=== PATIENT | male | born 1945 | race Caucasian/White ===

== ENCOUNTER 2021-04-28 12:52 | Emergency (ER) | payer MEDICARE, SELFPAY ==
[2021-04-28] VITALS (9 sets, daily range): BP systolic 108–136; BP diastolic 60–91; PULSE 68–78; RESP 14–26; TEMP 36.6; O2SAT 86–98; BMI 24.4
--- NOTE | 2021-04-28 13:20 | ECG_ITS ---
[facility] Test Date: 2021-04-28 Pat Name: Sree Robertson Department: Room: Gender: Male Control Room Agent: : 1945 Requested By: Orville Meraz Order Number: [id number] Loco MD: Iman Hayden M.D. Measurements Intervals [place] Rate: 73 P: 52 GA: 152 QRS: 26 QRSD: 96 T: 36 QT: 384 QTc: 425 Interpretive Statements SINUS RHYTHM WITH FREQUENT SUPRAVENTRICULAR PREMATURE COMPLEXES ABNORMAL RHYTHM ECG No previous ECG available for comparison Electronically Signed On 04-28-2021 16:10:40 CDT by Iman Hayden M.D. [id number]
--- NOTE | 2021-04-28 13:20 | XRR_ITS ---
PROCEDURE INFORMATION: Exam: XR Chest Exam date and time: 04/28/2021 1:20 PM Age: 76 years old Clinical indication: Cough, dyspnea and shortness of breath. TECHNIQUE: Imaging protocol: XR of the chest. Views: 1 view. COMPARISON: No relevant prior studies available. FINDINGS: Lungs: There are patchy hazy opacities bilaterally suspicious for pneumonia (including COVID 19 pneumonia). There is an irregular masslike opacity in the left lower lobe that measures 1.4 x 2.6 cm. Pleural spaces: No pleural effusion.; No pneumothorax. Heart/Mediastinum: The heart is enlarged. No gross evidence of pneumomediastinum. Bones/joints: No gross fracture. XR/XR chest 1V portable [id number] IMPRESSION: 1. Patchy hazy opacities bilaterally suspicious for pneumonia (including COVID 19 pneumonia). 2. Irregular masslike opacity in the left lower lobe. Recommend CT chest with contrast to further assess. 3. Cardiomegaly.
--- NOTE | 2021-04-28 13:51 | PC.PHAR ---
PTS VERIFIED MEDICATIONS-STATES PT ONLY TAKES OTC MEDS
--- NOTE | 2021-04-28 13:56 | W.ED.COVID ---
HPI - COVID General: Chief Complaint: Shortness of Breath/Dyspnea Stated Complaint: SOB, FEVER Time Seen by Provider: 04/28/21 12:53 Triage information: Has fever, cough or shortness of breath. No known COVID + exposure last 14 days History of Present Illness: HPI Narrative: 76-year-old male presents emergency room with complaints of shortness of breath. He has been aggressively sick for the last several days. Initially began 6 days ago with a cough and diarrhea cough has become progressively worse as well as the shortness of breath. He has myalgias and diarrhea initially diarrhea resolved the myalgias are persisting. Cough is minimally productive now. He has not been vaccinated nor is he been known to have COVID-19 prior to today. He is not diabetic hypertensive nor is he having chronic underlying respiratory disease. On arrival here his oxygen sat is in the mid 80s. MD complaint: has COVID symptoms Prior covid testing: no COVID 19 common symptoms: positive fever(s), chills, cough, productive cough, dyspnea, fatigue, body aches, headache(s), throat pain, nasal congestion, nausea and diarrhea; negative loss of sense of smell and/or taste COVID 19 other sytmptoms: positive requiring oxygen; negative chest pain Onset (ago): day(s) (6) Severity: moderate Treatment prior to arrival: none COVID Results: SARS-CoV-2 Antigen (Rapid) Positive (Negative) H 04/28/21 13:43 04/28/21 Nasal/Oral Coronavirus 2019 PCR Pending 04/28/21 13:43 04/28/21 Review of Systems Const: Reports: fever(s), chills, body aches and fatigue ENMT: Reports: throat pain and nasal congestion Card: Denies: chest pain, edema, dyspnea on exertion or orthopnea Resp: Reports: dyspnea and productive cough GI: Reports: nausea and diarrhea : Denies: flank pain, dysuria, urinary frequency or urinary urgency Skin/Breast: Denies: rash or pruritus Neuro: Reports: headache(s) Physical Exam Const: COMMON NORMALS: no acute distress GENERAL APPEARANCE: cooperative and comfortable ORIENTATION/CONSCIOUSNESS: Yes awake, Yes oriented to person, Yes oriented to place and Yes oriented to time HENMT: COMMON NORMALS: normocephalic, atraumatic and hearing grossly normal bilaterally HEAD & SCALP: normocephalic and atraumatic Neck/C-Spine: COMMON NORMALS: no JVD Resp: COMMON NORMALS: normal respiratory effort, No retractions, No use of accessory muscles and clear to auscultation bilaterally AUSCULTATION: clear to auscultation bilaterally Cardio: COMMON NORMALS: no JVD, regular rate, regular rhythm and No murmurs present (Cardio) RATE: regular rate RHYTHM: regular rhythm GI: COMMON NORMALS: Soft to palpation and No hepatosplenomegaly present AUSCULTATION: Yes normoactive bowel sounds PALPATION: Yes Soft to palpation, No Tenderness to palpation present (GI), No Guarding due to palpation present (GI) and Yes No hepatosplenomegaly present Extremity: COMMON NORMALS: normal to inspection, capillary refill normal, no clubbing, cyanosis or edema, no calf tenderness and no pedal edema Neuro: SENSORIUM/ORIENTATION: Yes oriented to person, Yes oriented to place and Yes oriented to time Skin: COMMON NORMALS: no rashes or lesions noted GENERAL SKIN EXAM: no rashes or lesions noted Course Vital Signs: Vital signs: Vital Signs Temperature 97.8 F 04/28/21 13:07 Pulse Rate 77 04/28/21 16:15 Respiratory Rate 18 04/28/21 16:15 Blood Pressure 108/65 04/28/21 16:15 Pulse Oximetry 94 04/28/21 16:15 MDM - COVID Lab Data: Labs: Lab Results 04/28/21 04/28/21 04/28/21 Range/Units 13:43 13:45 13:45 WBC 7.6 (4.0-10.0) 10^3/ uL RBC 4.98 (4.1-5.3) 10^6/u L Hgb 14.5 (11.7-16.6) g/dL Hct 44.2 (42.0-52.0) % MCV 88.8 (80-94) fl MCH 29.1 (28.0-34.0) pg MCHC 32.8 (30.0-36.0) g/dL RDW 13.4 (12.1-15.1) % Plt Count 108 L (130-400) 10^3/c mm MPV 13.1 H (7.4-10.4) fL Neut % (Auto) 82.6 % Lymph % (Auto) 11.1 % [place] % (Auto) 5.6 % Eos % (Auto) 0.1 % Baso % (Auto) 0.3 % Neut # (Auto) 6.30 (1.8-7.7) 10^3/u L Lymph # (Auto) 0.9 (0.8-4.8) 10^3/u L [place] # (Auto) 0.4 (0.2-0.9) 10^3/u L Eos # (Auto) 0.0 (0.0-0.8) 10^3/u L Baso # (Auto) 0.0 (0.0-0.1) 10^3/u L Nucleated RBC % (a uto) 0 % Nucleated RBCs # 0.0 /100WBC D-Dimer Sodium Cancelled Potassium Cancelled Chloride Cancelled Carbon Dioxide Cancelled Anion Gap Cancelled BUN Cancelled Creatinine Cancelled GFR Calculation Cancelled Glucose Cancelled Calculated Osmolal ity Cancelled Calcium Cancelled Total Bilirubin Cancelled AST Cancelled ALT Cancelled Alkaline Phosphata se Cancelled Total Protein Cancelled Albumin Cancelled Globulin Cancelled SARS-CoV-2 Ag (Rap id) Positive H (Negative) 04/28/21 04/28/21 04/28/21 Range/Units 14:18 14:18 15:05 WBC (4.0-10.0) 10^3/ uL RBC (4.1-5.3) 10^6/u L Hgb (11.7-16.6) g/dL Hct (42.0-52.0) % MCV (80-94) fl MCH (28.0-34.0) pg MCHC (30.0-36.0) g/dL RDW (12.1-15.1) % Plt Count (130-400) 10^3/c mm MPV (7.4-10.4) fL Neut % (Auto) % Lymph % (Auto) % [place] % (Auto) % Eos % (Auto) % Baso % (Auto) % Neut # (Auto) (1.8-7.7) 10^3/u L Lymph # (Auto) (0.8-4.8) 10^3/u L [place] # (Auto) (0.2-0.9) 10^3/u L Eos # (Auto) (0.0-0.8) 10^3/u L Baso # (Auto) (0.0-0.1) 10^3/u L Nucleated RBC % (a uto) % Nucleated RBCs # /100WBC D-Dimer Cancelled 0.55 Sodium Cancelled Potassium Cancelled Chloride Cancelled Carbon Dioxide Cancelled Anion Gap Cancelled BUN Cancelled Creatinine Cancelled GFR Calculation Cancelled Glucose Cancelled Calculated Osmolal ity Cancelled Calcium Cancelled Total Bilirubin Cancelled AST Cancelled ALT Cancelled Alkaline Phosphata se Cancelled Total Protein Cancelled Albumin Cancelled Globulin Cancelled SARS-CoV-2 Ag (Rap id) (Negative) 04/28/21 Range/Units 15:05 WBC (4.0-10.0) 10^3/ uL RBC (4.1-5.3) 10^6/u L Hgb (11.7-16.6) g/dL Hct (42.0-52.0) % MCV (80-94) fl MCH (28.0-34.0) pg MCHC (30.0-36.0) g/dL RDW (12.1-15.1) % Plt Count (130-400) 10^3/c mm MPV (7.4-10.4) fL Neut % (Auto) % Lymph % (Auto) % [place] % (Auto) % Eos % (Auto) % Baso % (Auto) % Neut # (Auto) (1.8-7.7) 10^3/u L Lymph # (Auto) (0.8-4.8) 10^3/u L [place] # (Auto) (0.2-0.9) 10^3/u L Eos # (Auto) (0.0-0.8) 10^3/u L Baso # (Auto) (0.0-0.1) 10^3/u L Nucleated RBC % (a uto) % Nucleated RBCs # /100WBC D-Dimer Sodium 136 Potassium 4.8 Chloride 100 Carbon Dioxide 28 Anion Gap 12.8 BUN 11 Creatinine 1.0 GFR Calculation Not Reportable Glucose 117 H Calculated Osmolal ity 282 L Calcium 7.6 L Total Bilirubin 0.4 AST 56 H ALT 35 Alkaline Phosphata se 91 Total Protein 6.7 Albumin 3.0 L Globulin 3.7 SARS-CoV-2 Ag (Rap id) (Negative) COVID Results: SARS-CoV-2 Antigen (Rapid) Positive (Negative) H 04/28/21 13:43 04/28/21 Nasal/Oral Coronavirus 2019 PCR Pending 04/28/21 13:43 04/28/21 Discharge Plan Discharge Patient Disposition: Home Clinical Impression: COVID-19 Condition: Stable Prescriptions: New dexamethasone 6 mg tablet 6 mg PO DAILY Qty: 7 RF: 0 No Action multivitamin Tablet 1 tab PO DAILY RF: 0 Tylenol 325 mg Tablet 650 mg PO Q4H PRN (Reason: Pain) RF: 0 magnesium 250 mg Tablet 250 mg PO DAILY RF: 0 Vitamin D3 25 mcg (1,000 unit) Capsule 25 mcg PO DAILY RF: 0 Elderberry Gummies 1 tab PO DAILY RF: 0 Discharge Orders: Discharge ED (Routine); Ordered 04/28/21 Ordered By: Orville Khan Other Ambulatory Orders: DME: Oxygen (Order) Location: None Selected Ordered By: Orville Khan Discharge Diet: Usual diet Discharge Activity: Increase activity as tolerated Patient Instructions: Opioid Safety Coding Level of Care Code ED Operations And Maintenance Specialist for Chg Fwd Exam Comprehensive
[2021-04-28 14:08] LABS: Basophils % 0.3 %; Eosinophils % 0.1 %; Hematocrit 44.2 % (42.0-52.0); Hemoglobin 14.5 g/dL (11.7-16.6); Lymphocytes # 0.9 10^3/uL (0.8-4.8); Lymphocytes % 11.1 %; Mean Corpuscular HGB Conc 32.8 g/dL (30.0-36.0); Mean Corpuscular Hemoglobin 29.1 pg (28.0-34.0); Mean Corpuscular Volume 88.8 fl (80-94); Mean Platelet Volume 13.1 fL (7.4-10.4); Monocytes # 0.4 10^3/uL (0.2-0.9); Monocytes % 5.6 %; Neutrophils % 82.6 %; Nucleated Red Blood Cells % 0 %; Platelet Count 108 10^3/cmm (130-400); Red Blood Count 4.98 10^6/uL (4.1-5.3); Red Cell Distribution Width 13.4 % (12.1-15.1); White Blood Count 7.6 10^3/uL (4.0-10.0)
--- NOTE | 2021-04-28 14:25 | PC.NURSE ---
Cardiac monitoring started 1419
[2021-04-28 14:35] LABS: SARS Covid-2 Antigen Positive (Negative)
[2021-04-28 14:52] LABS: Slide Review Slide Review Perform
[2021-04-28 15:34] LABS: D Dimer 0.55 ug/mIFEU (0-0.59)
[2021-04-28 15:39] LABS: Alanine Aminotransferase 35 U/L (0-41); Alkaline Phosphatase 91 IU/L (40-130); Anion Gap 12.8 (5-19); Aspartate Amino Transferase 56 U/L (0-40); Blood Urea Nitrogen 11 mg/dL (8-23); Calcium 7.6 mg/dL (8.5-10.5); Carbon Dioxide 28 mmol/L (22-29); Chloride 100 mmol/L (98-107); Globulin 3.7 g/dL (1.3-4.6); Glucose 117 mg/dL (65-115); Osmolality Calculated 282 mOsm/kg (285-295); Potassium 4.8 mmol/L (3.5-5.1); Sodium 136 mmol/L (136-145); Total Bilirubin 0.4 mg/dL (0.15-1.2); Total Protein 6.7 g/dL (6.6-8.7)
[2021-04-29 16:20] LABS: Coronavirus Test Green County Detected
== END 2021-04-28 18:44 | disposition home or self-care (01) ==
PROVIDERS: Emergency Provider Family Medicine
DX: U07.1 COVID-19 (principal)
CPT/HCPCS: 36415; 71045; 80053; 85025; 85378; 87426; 87635; 93005; 99284

== ENCOUNTER 2021-04-30 10:14 | Inpatient (IN) | payer MEDICARE, SELFPAY ==
[2021-04-30] VITALS (8 sets, daily range): BP systolic 111–139; BP diastolic 65–93; PULSE 67–82; RESP 17–22; TEMP 36.7–37.2; O2SAT 83–96; BMI 24.4; BMI 23.6
--- NOTE | 2021-04-30 10:25 | XR_ITS ---
WS: [id number] Portable AP upright chest, 04/30/2021 Clinical Data: hypoxemia, resp distress Comparison: Portable chest, 04/28/2021. Findings: The bilateral patchy lower lobe and right upper lobe opacities remain the same. The heart i s enlarged. The aortic arch shows calcification and tortuosity. Monitor leads are on the chest and ab dominal wall. XR/XR chest 1V portable [id number] Impression: No change in patchy bilateral pulmonary opacities.
--- NOTE | 2021-04-30 10:26 | ECG_ITS ---
[facility] ED Test Date: 2021-04-30 Pat Name: Sree Robertson Department: Room: Gender: Male Director Workers Compensation: : 1945 Requested By: Carroll Chowdhury Order Number: [id number] Loco MD: Iman Hayden M.D. Measurements Intervals [place] Rate: 87 P: 47 DE: 152 QRS: 6 QRSD: 97 T: 12 QT: 371 QTc: 448 Interpretive Statements SINUS RHYTHM WITH OCCASIONAL VENTRICULAR PREMATURE COMPLEXES INTERPRETATION BASED ON A DEFAULT AGE OF 40 YEARS Compared to ECG 04/28/2021 13:04:22 Ventricular premature complex(es) now present Electronically Signed On 05-01-2021 18:18:48 CDT by Iman Hayden M.D. [id number]
--- NOTE | 2021-04-30 10:28 | ED_ITS ---
HPI - SOB/Dyspnea General: Chief Complaint: COVID symptoms Stated Complaint: worsening covid symptoms Time Seen by Provider: 04/30/21 10:25 History of Present Illness: HPI Narrative: Mr Robertson is a 76-year-old male with known history of Covid who presents to the emergency department due to respiratory distress. His symptoms started approximately 8 days ago and initially had a cough and diarrhea. This subsequently worsened and he became short of breath. He had myalgias which have persisted and originally cough was dry however it has now become more productive. He denies history of COPD or smoking. Overall the course of symptoms has been worsening. The intensity is moderate to severe. His symptoms are worse with exertion but do not go with rest. No other specific exacerbating or alleviating factors. Per EMS patient at oxygen saturation in the low 80s on 2 L via nasal cannula. With 6 L by nasal cannula he got to the mid upper 80s. They attempted to nebulizer treatments which she reports subjectively minimally improved things however his oxygen saturations remain low. Review of Systems General: Reports: 10 or more systems reviewed and unremarkable except in HPI and below Narrative: CONSTITUTIONAL: Positive for fever, fatigue, weakness EYES - denies pain, denies loss of vision EARS - denies ear issues. NOSE - denies congestion or rhinorrhea. THROAT - denies sore throat or difficulty swallowing. CARDIOVASCULAR - denies chest pain and palpitations RESPIRATORY -see HPI GASTROINTESTINAL - denies abdominal pain, no nausea vomiting, diarrhea as noted in HPI GENITOURINARY - denies dysuria or urinary frequency MUSCULOSKELETAL- denies deformity or pain SKIN - denies rashes or new changed skin lesions NEUROLOGIC - denies focal weakness or sensory changes HEMATOLOGIC/LYMPHATIC - denies easy bruising or lymphadenopathy. PFS ED PFSH: Surgical History (Updated 04/30/21 @ 13:46 by Itz Campo MD) History of arthroplasty of right ankle Family History (Updated 04/30/21 @ 13:47 by Itz Campo MD) Mother Old age Father Old age Social History (Updated 04/30/21 @ 13:47 by Itz Campo MD) Smoking and tobacco status: never smoked Alcohol intake: never Substance/Drug Use: never Physical Exam Narrative: EXAM NARRATIVE: GENERAL/CONSTITUTIONAL - ill-appearing. Moderate respiratory distress Eyes - PERRL, no conjunctival injection ENMT - Atraumatic external nose and ears. Moist mucous membranes NECK - supple. trachea midline CARDIOVASCULAR - regular rate and rhythm. RESPIRATORY -diminished breath sounds bilaterally. Mild accessory muscle use. ABDOMEN/GI - Nontender/Nondistended. No tenderness to percussion or evidence of peritonitis MSK - Extremities without obvious deformity or tenderness to palpation SKIN - Warm, Dry NEURO - alert and appropriately oriented. strength and sensation intact. Moves all extremities equally. PSYCH - Appropriate mood and affect Course ED course: - Patient was seen and evaluated by me at bedside - Patient placed on cardiac monitors, IV access obtained - Initial evaluation notable for ill appearance, respiratory distress. In discussion with the patient he would not want intubation and the patient was quickly escalated to heated high flow. - Labs notable for leukocytosis,Elevated D-dimer. - Imaging notable for no evidence of pulmonary realism. Covid pneumonia present. -Given description of change in symptoms as well as new leukocytosis antibiotics were given with for concern over a superimposed bacterial infection. - Upon serial reexamination after treatment the patient was improved with marked improvement in respiratory effort and oxygen saturation though patient remains in guarded condition given oxygen saturation in the low 90s on heated high flow oxygen. - Based on patient history, evaluation, labs, and imaging as interpreted the most likely cause of the patient's condition is pneumonia - The results of ED evaluation were discussed with the patient including plan for admission due to requirement for level of care not available if discharged to prevent significant worsening/deterioration. -Hospitalist service consulted and agreed to admit the patient. - Patient was admitted without further deterioration or significant events. Vital Signs: Vital signs: Vital Signs Temperature 98.0 F 05/01/21 03:50 Pulse Rate 61 05/01/21 03:50 Respiratory Rate 20 H 05/01/21 03:50 Blood Pressure 118/72 05/01/21 03:50 Pulse Oximetry 95 05/01/21 03:50 MDM - SOB/Dyspnea Medical Records: Attestation: I reviewed the patient's medical records. Lab Data: Attestation: I reviewed the patient's lab results. Labs: Lab Results 04/30/21 04/30/21 04/30/21 Range/Units 10:35 10:35 10:35 WBC 15.9 H (4.0-10.0) 10^3/ uL RBC 4.74 (4.1-5.3) 10^6/u L Hgb 13.6 (11.7-16.6) g/dL Hct 41.7 L (42.0-52.0) % MCV 88.0 (80-94) fl MCH 28.7 (28.0-34.0) pg MCHC 32.6 (30.0-36.0) g/dL RDW 13.3 (12.1-15.1) % Plt Count 198 (130-400) 10^3/c mm MPV 11.6 H (7.4-10.4) fL Neut % (Auto) 86.9 % Lymph % (Auto) 6.1 % [place] % (Auto) 5.7 % Eos % (Auto) 0.0 % Baso % (Auto) 0.1 % Neut # (Auto) 13.85 H (1.8-7.7) 10^3/u L Lymph # (Auto) 1.0 (0.8-4.8) 10^3/u L [place] # (Auto) 0.9 (0.2-0.9) 10^3/u L Eos # (Auto) 0.0 (0.0-0.8) 10^3/u L Baso # (Auto) 0.0 (0.0-0.1) 10^3/u L Nucleated RBC % (a uto) 0 % Nucleated RBCs # 0.0 /100WBC D-Dimer 0.76 H (0-0.59) ug/mIFE U Specimen Type Sample Site ABG pH (7.35-7.45) ABG pCO2 (35-45) mmHg ABG pO2 (80.0-100.0) mmH g ABG HCO3 (22-26) mmol/L ABG Base Excess (-2.0-2.0) mmol/ L [place] Test Hematocrit (42-52) % O2 Delivery Device O2 Liters/Min % FiO2 % Human Resources Trainer ID Blood Gas Notified Time Sodium 136 (136-145) mmol/L Potassium 4.2 (3.5-5.1) mmol/L Chloride 97 L (98-107) mmol/L Carbon Dioxide 24 (22-29) mmol/L Anion Gap 19.2 H (5-19) BUN 19 (8-23) mg/dL Creatinine 0.9 (0.7-1.2) mg/dL GFR Calculation Not Reportable Glucose 138 H (65-115) mg/dL Calculated Osmolal ity 286 (285-295) mOsm/k g Lactic Acid (0.5-2.2) mmol/L Calcium 8.2 L (8.5-10.5) mg/dL Total Bilirubin 0.4 (0.15-1.2) mg/dL AST 83 H (0-40) U/L ALT 77 H (0-41) U/L Alkaline Phosphata se 146 H (40-130) IU/L Troponin T Baselin e (0-15) ng/L C-Reactive Protein 101.7 H (0.0-4.9) mg/L NT-Pro-B Natriuret Pep 830 H (0-125) pg/mL Total Protein 6.8 (6.6-8.7) g/dL Albumin 3.2 L (3.5-5.2) g/dL Globulin 3.6 (1.3-4.6) g/dL Procalcitonin 0.41 (0-0.5) ng/mL 04/30/21 04/30/21 04/30/21 Range/Units 10:35 10:35 10:45 WBC (4.0-10.0) 10^3/ uL RBC (4.1-5.3) 10^6/u L Hgb (11.7-16.6) g/dL Hct (42.0-52.0) % MCV (80-94) fl MCH (28.0-34.0) pg MCHC (30.0-36.0) g/dL RDW (12.1-15.1) % Plt Count (130-400) 10^3/c mm MPV (7.4-10.4) fL Neut % (Auto) % Lymph % (Auto) % [place] % (Auto) % Eos % (Auto) % Baso % (Auto) % Neut # (Auto) (1.8-7.7) 10^3/u L Lymph # (Auto) (0.8-4.8) 10^3/u L [place] # (Auto) (0.2-0.9) 10^3/u L Eos # (Auto) (0.0-0.8) 10^3/u L Baso # (Auto) (0.0-0.1) 10^3/u L Nucleated RBC % (a uto) % Nucleated RBCs # /100WBC D-Dimer (0-0.59) ug/mIFE U Specimen Type Arterial Sample Site Radial, left ABG pH 7.40 (7.35-7.45) ABG pCO2 36.3 (35-45) mmHg ABG pO2 82.0 (80.0-100.0) mmH g ABG HCO3 22.5 (22-26) mmol/L ABG Base Excess -1.9 (-2.0-2.0) mmol/ L [place] Test Pos Hematocrit 40.0 L (42-52) % O2 Delivery Device O2 Liters/Min 45.0 % FiO2 85.0 % Human Resources Trainer ID Anonymous Blood Gas Notified Time 1100 Sodium (136-145) mmol/L Potassium (3.5-5.1) mmol/L Chloride (98-107) mmol/L Carbon Dioxide (22-29) mmol/L Anion Gap (5-19) BUN (8-23) mg/dL Creatinine (0.7-1.2) mg/dL GFR Calculation Glucose (65-115) mg/dL Calculated Osmolal ity (285-295) mOsm/k g Lactic Acid 1.3 (0.5-2.2) mmol/L Calcium (8.5-10.5) mg/dL Total Bilirubin (0.15-1.2) mg/dL AST (0-40) U/L ALT (0-41) U/L Alkaline Phosphata se (40-130) IU/L Troponin T Baselin e 16 H (0-15) ng/L C-Reactive Protein (0.0-4.9) mg/L NT-Pro-B Natriuret Pep (0-125) pg/mL Total Protein (6.6-8.7) g/dL Albumin (3.5-5.2) g/dL Globulin (1.3-4.6) g/dL Procalcitonin (0-0.5) ng/mL EKG Data^: EKG 1: Attestation: I personally reviewed and interpreted this EKG as follows: EKG Interpretation Date: 04/30/21 EKG interpretation time: 10:35 Prior EKG tracings: available for review Ischemic changes: non-specific ST-T wave changes Interpretation: Twelve-lead EKG shows a regular sinus rhythm at a rate of 73. UT interval 152, QRS duration 96, QTc 425. Nonspecific ST segment abnormalities. Occasional ectopy. Interpretation: Sinus rhythm. Nonspecific ST segment abnormalities. Ectopy. EKG 2: Attestation: I personally reviewed and interpreted this EKG as follows: EKG Interpretation Date: 04/30/21 EKG interpretation time: 13:10 Prior EKG tracings: available for review Interpretation: Twelve-lead EKG shows a regular sinus rhythm at a rate of 83. UT interval 156, QRS duration 97, QTc 469. Normal axis. Interpretation: Sinus rhythm. Ectopy. Discharge Plan Discharge Patient Disposition: Admitted As Inpatient Admit Provider: Itz Campo Coding Level of Care Code ED Stereotyper for Kavon Nuñez
--- NOTE | 2021-04-30 10:39 | PC.PHAR ---
PTS VERIFIED MEDICATIONS-PTS MARYCARMEN STATES SHE GAVE THE PT DEXAMETHASONE ON 04/29/21 AND IT MADE HIM HAVE A LOW PULSE RATE AND STATES SHE DOESNT THINK HE NEEDS TO TAKE ANYMORE-PTS STATES IF WE CANT REACH HER AT [phone] THEN CALL [phone]
[2021-04-30 10:53] LABS: Blood Gas Allen Test Pos; Blood Gas Sample Site Radial, left; Blood Gas Sample Type Arterial
[2021-04-30 10:58] LABS: Blood Gas CCRB Time 1100
[2021-04-30 11:06] LABS: Basophils % 0.1 %; Hematocrit 41.7 % (42.0-52.0); Hemoglobin 13.6 g/dL (11.7-16.6); Lymphocytes % 6.1 %; Mean Corpuscular HGB Conc 32.6 g/dL (30.0-36.0); Mean Corpuscular Hemoglobin 28.7 pg (28.0-34.0); Mean Platelet Volume 11.6 fL (7.4-10.4); Monocytes # 0.9 10^3/uL (0.2-0.9); Monocytes % 5.7 %; Neutrophils # 13.85 10^3/uL (1.8-7.7); Neutrophils % 86.9 %; Nucleated Red Blood Cells % 0 %; Platelet Count 198 10^3/cmm (130-400); Red Blood Count 4.74 10^6/uL (4.1-5.3); Red Cell Distribution Width 13.3 % (12.1-15.1); White Blood Count 15.9 10^3/uL (4.0-10.0)
[2021-04-30 11:11] LABS: ABG PCO2 36.3 mmHg (35-45); Base Excess ABG -1.9 mmol/L (-2.0-2.0); HCO3 ABG 22.5 mmol/L (22-26)
[2021-04-30 11:14] LABS: D Dimer 0.76 ug/mIFEU (0-0.59)
[2021-04-30 11:19] LABS: Lactic Sepsis W/Reflex 1.3 mmol/L (0.5-2.2)
[2021-04-30 11:21] LABS: Troponin(5th) Baseline 16 ng/L (0-15)
[2021-04-30 11:28] LABS: NT Pro B Type Natriuretic Pept 830 pg/mL (0-125); Procalcitonin 0.41 ng/mL (0-0.5)
[2021-04-30 11:39] LABS: Alanine Aminotransferase 77 U/L (0-41); Albumin Level 3.2 g/dL (3.5-5.2); Alkaline Phosphatase 146 IU/L (40-130); Anion Gap 19.2 (5-19); Aspartate Amino Transferase 83 U/L (0-40); Blood Urea Nitrogen 19 mg/dL (8-23); C Reactive Protein 101.7 mg/L (0.0-4.9); Calcium 8.2 mg/dL (8.5-10.5); Carbon Dioxide 24 mmol/L (22-29); Chloride 97 mmol/L (98-107); Globulin 3.6 g/dL (1.3-4.6); Glucose 138 mg/dL (65-115); Osmolality Calculated 286 mOsm/kg (285-295); Potassium 4.2 mmol/L (3.5-5.1); Sodium 136 mmol/L (136-145); Total Bilirubin 0.4 mg/dL (0.15-1.2); Total Protein 6.8 g/dL (6.6-8.7)
[2021-04-30] MEDS: cefTRIAXone 1,000 MG in sodium chloride 0.9% (plus) 50 ML 100 MG IV (12:11)
[2021-04-30] MEDS: sodium chloride 0.9% 500 ML 999 ML IV (12:11)
--- NOTE | 2021-04-30 12:26 | ECG_ITS ---
[facility] Test Date: 2021-04-30 Pat Name: Sree Robertson Department: Room: Gender: Male Php Mysql Web Developer: : 1945 Requested By: Carroll Chowdhury Order Number: [id number] Loco MD: Iman Hayden M.D. Measurements Intervals [place] Rate: 83 P: 62 NV: 156 QRS: 13 QRSD: 97 T: 22 QT: 399 QTc: 469 Interpretive Statements SINUS RHYTHM WITH FREQUENT SUPRAVENTRICULAR PREMATURE COMPLEXES ABNORMAL RHYTHM ECG Compared to ECG 04/30/2021 10:26:38 Ventricular premature complex(es) no longer present Electronically Signed On 05-01-2021 18:28:09 CDT by Iman Hayden M.D. [id number]
--- NOTE | 2021-04-30 12:29 | CT_ITS ---
WS: [id number] CT CHEST ANGIOGRAPHY WITH REFORMATS HISTORY: hypoxemia, elevated ddimer TECHNIQUE: Contiguous axial images are obtained through the chest during arterial injection of intrav enous contrast. Images are reconstructed to evaluate the pulmonary arteries. MIP imaging also reviewe d. All CT scans at [facility] use at least one of these dose optimization techniques: aut omated exposure control; mA and/or kV adjustment per patient size (includes targeted exams where dose is matched to clinical indication); or iterative reconstruction. CONTRAST: Omnipaque 350; 75 mL IV. DLP: 598.48 mGy.cm COMPARISON: None available. Very good opacification of the pulmonary arteries. Pulmonary artery size is equal to the aorta. No fi lling defects. Mild atherosclerotic plaque within the aorta. Moderate enlargement of the LEFT heart c hambers. Moderate RIGHT atrial enlargement. No pericardial effusion. Bilateral, multilobar opacifications. Some of these opacifications are groundglass while others at th e lung bases are more consolidated and associated with atelectasis. Mildly prominent mediastinal and hilar lymph nodes are likely reactive. Mild hepatic steatosis. Exophytic cyst from the RIGHT kidney measures 1.5 cm. Gallbladder is negative . Mild RIGHT curvature thoracic spine. CT/CT angio chest PE protcl [id number] IMPRESSION: 1. No pulmonary embolism. 2. Bilateral groundglass attenuation with consolidations at the lung bases and subsegmental atelectasis. Consider Covid 19 as a possible etiology. 3. LEFT heart and RIGHT atrial enlargement.
[2021-04-30] MEDS: iohexol 350 mg/mL 100 mL Btl IV (12:46)
[2021-04-30] MEDS: doxycycline 100 MG in sodium chloride 0.9% (plus) 100 ML IV (13:14)
--- NOTE | 2021-04-30 13:43 | PM.HP ---
Providers/Chief Complaint Chief Complaint: worsening covid symptoms History of Present Illness Sree Robertson is a 76 year old male with no significant past medical history who presents to [facility] for evaluation of a week history of fatigue, malaise, diarrhea, muscle aches, cough, shortness of breath and fevers. Patient tells me that for the last week, he has had fatigue, malaise, muscle aches, diarrhea, cough. He is also monitoring his oxygen saturation, his oxygen saturations would be in the low 80s, he presented to [facility] on 04/28/2021, was diagnosed with COVID-19, was not really requiring any oxygen, was sent home, but since then his symptomatology has worsened, his oxygen saturations are in the low 70s at times. Denies history of smoking, no history of lung disease, no history of heart failure, no history of diabetes, no history of liver disease, no history of kidney disease. Patient has not received Covid vaccination Review of Systems Const: Reports: fever(s), chills, body aches, change in appetite, fatigue and malaise Eyes: Denies: change in vision or blurry vision ENMT: Reports: nasal congestion; Denies: throat pain Card: Denies: chest pain, palpitations, edema or lightheadedness Resp: Reports: dyspnea and non-productive cough; Denies: productive cough or wheezing GI: Reports: diarrhea; Denies: abdominal pain, nausea, vomiting, hematemesis, constipation, hematochezia or melena : Denies: flank pain, difficulty urinating, dysuria or urinary frequency Musc: Denies: neck pain, back pain or joint pain Skin/Breast: Denies: rash, pruritus or erythema Neuro: Denies: headache(s), numbness in extremities, difficulty walking, dizziness, vertigo or confusion Psych: Reports: sleeping less Endo: Denies: polyuria or polydipsia Medications/Allergies Home Medications Medication Instructions Recorded Confirmed Last Taken Type Elderberry Gummies 1 tab PO DAILY 04/28/21 04/30/21 04/27/21 History acetaminophen [Tylenol] 650 mg PO Q4H PRN 04/28/21 04/30/21 04/29/21 History cholecalciferol (vitamin D3) 25 mcg PO DAILY 04/28/21 04/30/21 04/27/21 History [Vitamin D3] magnesium 250 mg PO DAILY 04/28/21 04/30/21 04/27/21 History multivitamin 1 tab PO DAILY 04/28/21 04/30/21 04/27/21 History dexamethasone 6 mg PO DAILY 04/30/21 04/30/21 04/29/21 History Allergies Allergy/AdvReac Type Severity Reaction Status Date / Time dexamethasone Allergy Unknown Verified 04/30/21 10:37 PFSH Acute PFSH: Surgical History (Updated 04/30/21 @ 13:46 by Itz Campo MD) History of arthroplasty of right ankle Family History (Updated 04/30/21 @ 13:47 by Itz Campo MD) Mother Old age Father Old age Social History (Updated 04/30/21 @ 13:47 by Itz Campo MD) Smoking and tobacco status: never smoked Alcohol intake: never Substance/Drug Use: never Vitals/I&O/Wt Last Vital Signs Temp 99 F 04/30/21 10:16 Pulse 82 04/30/21 12:16 Resp 21 H 04/30/21 12:16 BP 111/65 04/30/21 12:16 Pulse Ox 91 04/30/21 12:16 Weight last 48 hrs Weight 79.379 kg Data : 04/30/21 10:35 04/30/21 10:35 Micro: Microbiology 04/30/21 10:40 Blood Culture - Preliminary Blood SPECIMEN COLLECTED 04/30/21 10:35 Blood Culture - Preliminary Blood SPECIMEN COLLECTED A&P Assessment and plan (1) Acute respiratory failure with hypoxia: -Secondary to COVID-19 pneumonia, possible secondary bacterial infection, transaminitis Plan: -Admit to Covid unit -Decadron 6 mg IV push daily, day 1 of 10 -Remdesivir load, followed by maintenance dose -Vitamin C, zinc, vitamin D - broad-spectrum antibiotic therapy, Rocephin, azithromycin -Albuterol, budesonide -Oxygen therapy, wean as tolerated -Incentive spirometer, flutter valve, continue ambulation, prone positioning -Follow blood cultures, sputum cultures, urine bacterial antigens -Monitor inflammatory markers -Lovenox for DVT prophylaxis -Protonix for GI prophylaxis -Patient wants CPR, wants drugs per ACLS, wants defibrillation, however does not want intubation Status: Acute (2) Pneumonia due to COVID-19 virus: Status: Acute (3) Transaminitis: Status: Acute Attestations Medical Necessity Statement*: Patient requires hospitalization for acute hypoxic respiratory failure secondary to COVID-19 pneumonia, inpatient, greater than 2 midnights Coding Level of Care Code Acute Mechanical Laboratory Technician for [facility] Diagnoses Acute respiratory failure with hypoxia J96.01 Pneumonia due to COVID-19 virus U07.1; J12.82 Transaminitis R74.01
--- NOTE | 2021-04-30 15:01 | USCV_ITS ---
Sree Robertson Age: 76 Gender: M : 1945 Exam Date: 04/30/2021 16:02 Ordering Phys: Itz Campo MD Technologist: Shanna Gallo [place] [facility] [place]: COVID WITH DROPING O2 BP: / HR: 74 Rhythm: Sinus Technical Quality: Adequate MEASUREMENTS (Male / Female) Normal Values 2D ECHO LV Diastolic Diameter PLAX 3.8 cm 4.2 - 5.9 / 3.9 - 5.3 cm LV Systolic Diameter PLAX 2.6 cm IVS Diastolic Thickness 1.1 cm 0.6 - 1.0 / 0.6 - 0.9 cm IVS Systolic Thickness 1.9 cm LVPW Diastolic Thickness 1.2 cm 0.6 - 1.0 / 0.6 - 0.9 cm LVPW Systolic Thickness 1.5 cm LVOT Diameter 2.0 cm LV Ejection Fraction 2D Teich 60.8 % LV Ejection Fraction MOD 2C 47.2 % LV Ejection Fraction 2C AL 54.2 % LA Diameter 3.1 cm LA Width 3.3 cm LA Height 3.6 cm RA Width 3.2 cm RA Height 2.8 cm Aorta at Sinotubular Diameter 2.8 cm M-MODE LV Diastolic Diameter MM 4.0 cm 4.2 - 5.9 / 3.9 - 5.3 cm LV Systolic Diameter MM 3.5 cm LV Ejection Fraction MM Teich 29.9 % IVS Diastolic Thickness MM 1.0 cm 0.6 - 1.0 / 0.6 - 0.9 cm IVS Systolic Thickness MM 1.2 cm LVPW Diastolic Thickness MM 1.0 cm 0.6 - 1.0 / 0.6 - 0.9 cm LVPW Systolic Thickness MM 1.2 cm Aortic Annulus Diameter 3.7 cm LA Ao Ratio MM 0.9 MV E Point Septal Separation 0.6 cm DOPPLER AV Peak Velocity 111.0 cm/s LVOT Peak Velocity 72.0 cm/s AV Area Cont Eq vti 2.7 cm squared AV Area Cont Eq pk 2.1 cm squared MV Area PHT 2.3 cm squared Mitral E to A Ratio 1.2 MV E' Velocity 42.5 cm/s Mitral E to MV E' Ratio 3.8 Mitral E to LV E' Lateral Ratio 3.6 Mitral E to LV E' Septal Ratio 4.0 TR Peak Velocity 260.0 cm/s TR Peak Gradient 27.0 mmHg TR Mean Velocity 173.3 cm/s TR Mean Gradient 14.4 mmHg TR Velocity Time Integral 63.2 cm TV Peak E Velocity 65.0 cm/s Right Atrial Pressure 8.0 mmHg Pulmonary Artery Systolic Pressu 35.0 mmHg PV Peak Velocity 63.0 cm/s RV Acceleration Time 0.1 s RV Ejection Time 0.3 s RV AcT/ET 0.3 FINDINGS Left Ventricle Normal LV size with a borderline low ejection fraction of 50%. Mild diffuse hypokinesis of the left ventricle. Because of the frequent arrhythmia, segmental wall motion analysis somewhat difficult Right Ventricle The right ventricle is normal in size and function. Right Atrium Prominent coronary sinus is noted Left Atrium Normal size Mitral Valve Trace mitral valve regurgitation. Aortic Valve No gross abnormalities noted Tricuspid Valve Possible moderate eccentric tricuspid regurgitation. This was noted only in the subcostal view only. Pulmonic Valve Pulmonic valve not well visualized. Pericardium Normal pericardium without effusion. Aorta Normal ascending aorta dimension. CONCLUSIONS Normal LV size with a borderline low ejection fraction of 50%. Mild diffuse hypokinesis of the left ventricle. Because of the frequent arrhythmia, segmental wall motion analysis somewhat difficult. Possible moderate eccentric tricuspid regurgitation. This was noted only in the subcostal view only. 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 There is no pericardial effusion. No previous study is available for comparison. Consider ANJELICA, to better evaluate the tricuspid valve,if clinically indicated. Consider bubble study to evaluate for persistent left superior vena cava No similar previous studies are available for comparison Dr Rafa Amezquita MD [facility] (Electronically Signed) Final Date: 30 April 2021 19:32 S
[2021-04-30] MEDS: remdesivir 200 MG in sodium chloride 0.9% (100 ml) 100 ML 100 MG IV (15:08)
[2021-04-30] MEDS: enoxaparin 40 mg/0.4 mL Syringe SUBCUT (15:21)
[2021-04-30] MEDS: ascorbic acid 500 mg Tablet PO (18:10)
[2021-04-30 18:40] LABS: Troponin 5 6HR 16.02 ng/L (0-15); Troponin 5 6HR Delta 0.02 ng/L (0-12)
[2021-04-30 20:44] LABS: Thyroid Stimulating Hormone 0.53 uIU/mL (0.27-4.20)
[2021-05-01] VITALS (12 sets, daily range): BP systolic 116–122; BP diastolic 65–72; PULSE 61–84; RESP 19–26; TEMP 36.4–36.7; O2SAT 90–95
[2021-05-01] MEDS: acetaminophen 325 mg Tablet 650 MG PO ×2 (03:53→20:55)
[2021-05-01 04:02] LABS: ABG PCO2 37.2 mmHg (35-45); ABG PH Result 7.49 (7.35-7.45); Arterial Blood Gas Hematocrit 50.6 % (42-52); Base Excess ABG 4.8 mmol/L (-2.0-2.0); Blood Gas Sample Site Brachial, right; Blood Gas Sample Type Arterial; HCO3 ABG 28.2 mmol/L (22-26); PO2 ABG 75.2 mmHg (80.0-100.0)
[2021-05-01 04:05] LABS: Oxygen Device NC
[2021-05-01 05:34] LABS: Basophils % 0.2 %; Eosinophils % 0.1 %; Hematocrit 40.5 % (42.0-52.0); Lymphocytes # 0.9 10^3/uL (0.8-4.8); Lymphocytes % 7.3 %; Mean Corpuscular HGB Conc 32.1 g/dL (30.0-36.0); Mean Corpuscular Hemoglobin 29.1 pg (28.0-34.0); Mean Corpuscular Volume 90.6 fl (80-94); Mean Platelet Volume 10.7 fL (7.4-10.4); Monocytes # 0.7 10^3/uL (0.2-0.9); Monocytes % 6.1 %; Neutrophils # 10.32 10^3/uL (1.8-7.7); Nucleated Red Blood Cells % 0 %; Platelet Count 286 10^3/cmm (130-400); Red Blood Count 4.47 10^6/uL (4.1-5.3); Red Cell Distribution Width 13.6 % (12.1-15.1); White Blood Count 12.1 10^3/uL (4.0-10.0)
[2021-05-01 05:41] LABS: INR 2.98 (0.8-1.2)
[2021-05-01 06:03] LABS: NT Pro B Type Natriuretic Pept 1013 pg/mL (0-125); Procalcitonin 0.32 ng/mL (0-0.5)
[2021-05-01 06:05] LABS: Alanine Aminotransferase 91 U/L (0-41); Albumin Level 2.9 g/dL (3.5-5.2); Alkaline Phosphatase 147 IU/L (40-130); Anion Gap 14.8 (5-19); Aspartate Amino Transferase 90 U/L (0-40); Blood Urea Nitrogen 19 mg/dL (8-23); C Reactive Protein 91.7 mg/L (0.0-4.9); Calcium 8.3 mg/dL (8.5-10.5); Carbon Dioxide 26 mmol/L (22-29); Chloride 103 mmol/L (98-107); Glucose 93 mg/dL (65-115); Magnesium 2.3 mg/dL (1.7-2.3); Osmolality Calculated 290 mOsm/kg (285-295); Potassium 4.8 mmol/L (3.5-5.1); Sodium 139 mmol/L (136-145); Total Bilirubin 0.4 mg/dL (0.15-1.2); Total Protein 6.9 g/dL (6.6-8.7)
[2021-05-01 06:15] LABS: Creatine Phosphokinase 99 U/L (39-308)
[2021-05-01 06:56] LABS: Ferritin 1954 ng/mL (30-400)
[2021-05-01] MEDS: budesonide 0.5 mg/2 mL Neb INHALATION ×3 (07:54→19:50)
[2021-05-01] MEDS: azithromycin 500 MG in sodium chloride 0.9% 250 ML 250 MG IV (08:35)
[2021-05-01] MEDS: ascorbic acid 500 mg Tablet PO ×2 (08:36→18:40)
[2021-05-01] MEDS: cholecalciferol (vitamin D3) 1,000 unit Tablet 1000 UNIT PO (08:37)
[2021-05-01] MEDS: pantoprazole DR 40 mg Tablet PO (08:37)
[2021-05-01] MEDS: zinc gluconate 50 mg Tablet PO (08:37)
--- NOTE | 2021-05-01 11:26 | PM.PN ---
Subjective Subjective: Interval history: Patient was examined this morning, he tells me that he continues to feel tired, continues to have a cough, no fevers overnight, no shortness of breath, no lightheadedness, dizziness, no nausea, no vomiting Vitals/I&O/Wt Last Vital Signs Temp 97.7 F 05/01/21 07:51 Pulse 70 05/01/21 08:00 Resp 20 H 05/01/21 07:57 BP 120/68 05/01/21 07:51 Pulse Ox 92 05/01/21 07:57 04/30/21 05/01/21 05/01/21 22:59 06:59 14:59 Intake Total 750 / 750 120 / 870 370 / 370 Output Total 500 / 500 400 / 900 300 / 300 Balance 250 / 250 -280 / -30 70 / 70 Weight last 48 hrs Weight 77.02 kg Weight 79.379 kg Physical Exam Const: COMMON NORMALS: no acute distress Resp: COMMON NORMALS: normal respiratory effort, No retractions, No use of accessory muscles and clear to auscultation bilaterally AUSCULTATION: clear to auscultation bilaterally Cardio: COMMON NORMALS: regular rate, regular rhythm, S1 normal heart sound present and S2 normal heart sound present RATE: regular rate RHYTHM: regular rhythm HEART SOUNDS: S1 normal heart sound present and S2 normal heart sound present GI: COMMON NORMALS: Normal to inspection, nondistended, normoactive bowel sounds present, Soft to palpation and non-tender PALPATION: Yes Soft to palpation Extremity: COMMON NORMALS: no pedal edema Data : 05/01/21 03:50 05/01/21 03:50 Micro: Microbiology 04/30/21 10:40 Blood Culture - Preliminary Blood NEGATIVE TO DATE 04/30/21 10:35 Blood Culture - Preliminary Blood NEGATIVE TO DATE 04/30/21 18:17 Bacterial Antigens - Final Urine,Voided 04/30/21 18:15 Gram Stain - Final Sputum - Expectorated Sputum A&P Assessment and plan (1) Acute respiratory failure with hypoxia: -Secondary to COVID-19 pneumonia, possible secondary bacterial infection, transaminitis Plan: -On Covid unit -Decadron 6 mg IV push daily, day 2 of 10 -On remdesivir day 2 of 5 -Vitamin C, zinc, vitamin D - broad-spectrum antibiotic therapy, Rocephin, azithromycin -Albuterol, budesonide -Oxygen therapy, wean as tolerated -Incentive spirometer, flutter valve, continue ambulation, prone positioning -Follow blood cultures, sputum cultures, urine bacterial antigens -Monitor inflammatory markers -Lovenox for DVT prophylaxis -Protonix for GI prophylaxis -Patient wants CPR, wants drugs per ACLS, wants defibrillation, however does not want intubation Status: Acute (2) Pneumonia due to COVID-19 virus: Status: Acute (3) Transaminitis: Status: Acute Additional A&P Information Elevated INR, 2.98, continue to monitor Borderline low ejection fraction 50%, mild diffuse hypokinesis of the left ventricle Moderate eccentric tricuspid regurgitation Prominent coronary sinus, 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
[2021-05-01] MEDS: cefTRIAXone 1,000 MG in sodium chloride 0.9% (plus) 50 ML 100 MG IV (12:48)
[2021-05-01] MEDS: enoxaparin 40 mg/0.4 mL Syringe SUBCUT (18:39)
[2021-05-01] MEDS: remdesivir 100 MG in sodium chloride 0.9% (100 ml) 100 ML IV (18:39)
--- NOTE | 2021-05-01 20:29 | PC.NURSE ---
Shift Note Frequent safety and comfort rounds continue. Orders and/or nursing care completed as indicated. Patient monitored for response to intervention and treatment(s). Education provided includes oxygen use and new meds. Patient and/or door to door sales representative verbalizes understanding. Will continue to monitor.
[2021-05-02] VITALS (13 sets, daily range): BP systolic 109–133; BP diastolic 63–75; PULSE 62–82; RESP 16–36; TEMP 36.5–37; O2SAT 89–95
[2021-05-02] MEDS: acetaminophen 325 mg Tablet 650 MG PO (03:34)
[2021-05-02 04:04] LABS: ABG PCO2 38.5 mmHg (35-45); ABG PH Result 7.47 (7.35-7.45); Arterial Blood Gas Hematocrit 55.4 % (42-52); Base Excess ABG 3.8 mmol/L (-2.0-2.0); Blood Gas Sample Type Arterial; HCO3 ABG 27.7 mmol/L (22-26); PO2 ABG 58.6 mmHg (80.0-100.0)
[2021-05-02 04:06] LABS: Blood Gas Sample Site Brachial, right; Oxygen Device NC
[2021-05-02 06:32] LABS: Basophils % 0.2 %; Eosinophils # 0.1 10^3/uL (0.0-0.8); Eosinophils % 0.8 %; Hematocrit 41.7 % (42.0-52.0); Hemoglobin 13.1 g/dL (11.7-16.6); Lymphocytes % 10.1 %; Mean Corpuscular HGB Conc 31.4 g/dL (30.0-36.0); Mean Corpuscular Hemoglobin 28.7 pg (28.0-34.0); Mean Corpuscular Volume 91.2 fl (80-94); Mean Platelet Volume 11.3 fL (7.4-10.4); Monocytes % 10.2 %; Neutrophils # 7.54 10^3/uL (1.8-7.7); Neutrophils % 77.7 %; Nucleated Red Blood Cells % 0 %; Platelet Count 291 10^3/cmm (130-400); Red Blood Count 4.57 10^6/uL (4.1-5.3); Red Cell Distribution Width 13.6 % (12.1-15.1); White Blood Count 9.7 10^3/uL (4.0-10.0)
[2021-05-02 07:16] LABS: NT Pro B Type Natriuretic Pept 666 pg/mL (0-125); Procalcitonin 0.23 ng/mL (0-0.5)
[2021-05-02 07:29] LABS: Creatine Phosphokinase 53 U/L (39-308)
[2021-05-02 07:47] LABS: Ferritin 2142 ng/mL (30-400)
[2021-05-02] MEDS: ascorbic acid 500 mg Tablet PO ×2 (08:21→17:29)
[2021-05-02] MEDS: zinc gluconate 50 mg Tablet PO (08:21)
[2021-05-02] MEDS: pantoprazole DR 40 mg Tablet PO (08:21)
[2021-05-02] MEDS: cholecalciferol (vitamin D3) 1,000 unit Tablet 1000 UNIT PO (08:22)
[2021-05-02] MEDS: azithromycin 500 MG in sodium chloride 0.9% 250 ML 250 MG IV (08:22)
[2021-05-02] MEDS: budesonide 0.5 mg/2 mL Neb INHALATION (08:54)
[2021-05-02] MEDS: cefTRIAXone 1,000 MG in sodium chloride 0.9% (plus) 50 ML 100 MG IV (11:24)
--- NOTE | 2021-05-02 13:10 | P.PN_ITS ---
Subjective Subjective: Interval history: Patient was seen this morning, he is a bit short of breath this morning, currently is on 40 L, 80% FiO2, his oxygen requirements have increased, no fevers, chills, no chest pain, denies any cardiac history Vitals/I&O/Wt Last Vital Signs Temp 97.8 F 05/02/21 12:06 Pulse 72 05/02/21 12:06 Resp 16 05/02/21 12:06 BP 133/71 05/02/21 12:06 Pulse Ox 91 05/02/21 12:06 05/01/21 05/02/21 05/02/21 22:59 06:59 14:59 Intake Total 220 / 880 250 / 250 Output Total 300 / 850 600 / 600 Balance -80 / 30 -350 / -350 Weight last 48 hrs Weight 77.02 kg Physical Exam Const: COMMON NORMALS: no acute distress ORIENTATION/CONSCIOUSNESS: Yes awake, Yes oriented to person, Yes oriented to place and Yes oriented to time Resp: COMMON NORMALS: No use of accessory muscles EFFORT & INSPECTION: Yes tachypneic and Yes retractions (slight retrations) AUSCULTATION: diminished lung sounds diffuse Cardio: COMMON NORMALS: regular rate, regular rhythm, S1 normal heart sound present and S2 normal heart sound present RATE: regular rate RHYTHM: regular rhythm HEART SOUNDS: S1 normal heart sound present and S2 normal heart sound present GI: COMMON NORMALS: Normal to inspection, nondistended, normoactive bowel sounds present, Soft to palpation and non-tender PALPATION: Yes Soft to palpation Extremity: COMMON NORMALS: no pedal edema Neuro: SENSORIUM/ORIENTATION: Yes oriented to person, Yes oriented to place and Yes oriented to time Data : 05/02/21 05:38 05/01/21 03:50 Micro: Microbiology 04/30/21 18:15 Gram Stain - Final Sputum - Expectorated Sputum Sputum Culture - Final 04/30/21 10:40 Blood Culture - Preliminary Blood NEGATIVE TO DATE 04/30/21 10:35 Blood Culture - Preliminary Blood NEGATIVE TO DATE 04/30/21 18:17 Bacterial Antigens - Final Urine,Voided A&P Assessment and plan (1) Acute respiratory failure with hypoxia: -Secondary to COVID-19 pneumonia, possible secondary bacterial infection, transaminitis Plan: -On Covid unit -Currently on on 40 L, 80% -Decadron 6 mg IV push daily, has an allergy to Decadron, no reported anaphylactic reaction, is not sure what reaction he has had, will give him 1 dose of Decadron, EpiPen and Benadryl on hand just in case he has an anaphylactic reaction -His oxygen requirements have increased in the next 24 hours, is a bit short of breath this morning, pro-Stefan 0.23, last CRP 91.7, no infectious source, will d iscuss with Dr. Iverson about Actemra -Vitamin C, zinc, vitamin D - broad-spectrum antibiotic therapy, Rocephin, azithromycin for secondary bacterial pneumonia prophylaxis -Albuterol, budesonide -Oxygen therapy, wean as tolerated -Incentive spirometer, flutter valve, continue ambulation, prone positioning -Follow blood cultures, sputum cultures, urine bacterial antigens -Monitor inflammatory markers -Lovenox for DVT prophylaxis -Protonix for GI prophylaxis -Patient wants CPR, wants drugs per ACLS, wants defibrillation, however does not want intubation Status: Acute (2) Pneumonia due to COVID-19 virus: Status: Acute (3) Transaminitis: Status: Acute Additional A&P Information Elevated INR, 1.10, continue to monitor Borderline low ejection fraction 50%, mild diffuse hypokinesis of the left ventricle, will do a trial of Lasix 40 mg today Moderate eccentric tricuspid regurgitation Prominent coronary sinus, 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
[2021-05-02] MEDS: FUROsemide 10 mg/mL SDV 2mL 20 MG IVP (14:17)
[2021-05-02] MEDS: dexamethasone 10 mg/mL INJ 6 MG IVP (14:19)
[2021-05-02 15:20] LABS: Alanine Aminotransferase 140 U/L (0-41); Alkaline Phosphatase 162 IU/L (40-130); Anion Gap 16.5 (5-19); Aspartate Amino Transferase 120 U/L (0-40); Blood Urea Nitrogen 21 mg/dL (8-23); C Reactive Protein 80.5 mg/L (0.0-4.9); Calcium 8.2 mg/dL (8.5-10.5); Carbon Dioxide 25 mmol/L (22-29); Chloride 102 mmol/L (98-107); Globulin 3.9 g/dL (1.3-4.6); Glucose 96 mg/dL (65-115); Osmolality Calculated 291 mOsm/kg (285-295); Phosphorus 3.2 mg/dL (2.5-4.5); Potassium 4.5 mmol/L (3.5-5.1); Sodium 139 mmol/L (136-145); Total Bilirubin 0.3 mg/dL (0.15-1.2); Total Protein 6.9 g/dL (6.6-8.7)
[2021-05-02 17:05] LABS: Blood Gas Operator Identificat GLC
[2021-05-02] MEDS: enoxaparin 40 mg/0.4 mL Syringe SUBCUT (17:29)
[2021-05-02] MEDS: remdesivir 100 MG in sodium chloride 0.9% (100 ml) 100 ML IV (17:29)
--- NOTE | 2021-05-02 20:51 | PC.RESP ---
RT Shift Note Frequent safety and respiratory rounds continue. Orders completed as indicated. Patient monitored pre and post treatments throughout shift. Patient [Did] tolerate treatments appropriately. Condition [DidNotChange]. Patient and/or retail service representative educated on respiratory treatment and medications. Patient and/or retail service representative [ResponseToTeaching]. Will continue to monitor patient progress.
[2021-05-03] VITALS (14 sets, daily range): BP systolic 105–137; BP diastolic 60–78; PULSE 53–88; RESP 18–30; TEMP 36.4–36.7; O2SAT 89–95
[2021-05-03 05:46] LABS: ABG PCO2 43.3 mmHg (35-45); ABG PH Result 7.44 (7.35-7.45); Arterial Blood Gas Hematocrit 43.7 % (42-52); Base Excess ABG 4.9 mmol/L (-2.0-2.0); Blood Gas Operator Identificat 33; Blood Gas Sample Site Brachial, left; Blood Gas Sample Type Arterial; HCO3 ABG 29.7 mmol/L (22-26); PO2 ABG 58.3 mmHg (80.0-100.0)
[2021-05-03 05:55] LABS: Oxygen Device HAG
[2021-05-03 07:16] LABS: Basophils % 0.2 %; Hematocrit 42.8 % (42.0-52.0); Lymphocytes # 0.5 10^3/uL (0.8-4.8); Lymphocytes % 8.6 %; Mean Corpuscular HGB Conc 32.7 g/dL (30.0-36.0); Mean Corpuscular Hemoglobin 28.7 pg (28.0-34.0); Mean Corpuscular Volume 87.9 fl (80-94); Mean Platelet Volume 10.2 fL (7.4-10.4); Monocytes # 0.6 10^3/uL (0.2-0.9); Monocytes % 8.7 %; Neutrophils # 5.11 10^3/uL (1.8-7.7); Neutrophils % 80.9 %; Nucleated Red Blood Cells % 0 %; Platelet Count 393 10^3/cmm (130-400); Red Blood Count 4.87 10^6/uL (4.1-5.3); Red Cell Distribution Width 13.2 % (12.1-15.1); White Blood Count 6.3 10^3/uL (4.0-10.0)
[2021-05-03 07:47] LABS: Alanine Aminotransferase 137 U/L (0-41); Albumin Level 2.7 g/dL (3.5-5.2); Alkaline Phosphatase 173 IU/L (40-130); Anion Gap 13.9 (5-19); Aspartate Amino Transferase 86 U/L (0-40); Blood Urea Nitrogen 21 mg/dL (8-23); C Reactive Protein 109.8 mg/L (0.0-4.9); Calcium 8.2 mg/dL (8.5-10.5); Carbon Dioxide 28 mmol/L (22-29); Chloride 102 mmol/L (98-107); Globulin 4.2 g/dL (1.3-4.6); Glucose 143 mg/dL (65-115); Magnesium 2.3 mg/dL (1.7-2.3); Osmolality Calculated 293 mOsm/kg (285-295); Phosphorus 2.7 mg/dL (2.5-4.5); Potassium 4.9 mmol/L (3.5-5.1); Sodium 139 mmol/L (136-145); Total Bilirubin 0.3 mg/dL (0.15-1.2); Total Protein 6.9 g/dL (6.6-8.7)
[2021-05-03 07:59] LABS: NT Pro B Type Natriuretic Pept 767 pg/mL (0-125); Procalcitonin 0.18 ng/mL (0-0.5)
[2021-05-03 08:10] LABS: Creatine Phosphokinase 37 U/L (39-308)
[2021-05-03 08:26] LABS: Ferritin 1706 ng/mL (30-400)
[2021-05-03] MEDS: budesonide 0.5 mg/2 mL Neb INHALATION ×3 (08:32→20:20)
[2021-05-03] MEDS: pantoprazole DR 40 mg Tablet PO (09:25)
[2021-05-03] MEDS: cholecalciferol (vitamin D3) 1,000 unit Tablet 1000 UNIT PO (09:25)
[2021-05-03] MEDS: azithromycin 500 MG in sodium chloride 0.9% 250 ML 250 MG IV (09:25)
[2021-05-03] MEDS: ascorbic acid 500 mg Tablet PO ×2 (09:25→17:18)
[2021-05-03] MEDS: zinc gluconate 50 mg Tablet PO (09:25)
--- NOTE | 2021-05-03 09:26 | PC.SOCIAL ---
IM follow up note provided pt voiced understanding and had no questions.
--- NOTE | 2021-05-03 11:34 | P.PN_ITS ---
Subjective Subjective: Interval history: Patient was seen this morning, he tells me that he is feeling a lot better, he is down to 15 L, no fevers, no chills, no nausea, no vomiting Vitals/I&O/Wt Last Vital Signs Temp 97.6 F 05/03/21 11:07 Pulse 64 05/03/21 11:32 Resp 18 05/03/21 11:32 BP 105/63 05/03/21 11:07 Pulse Ox 93 05/03/21 11:32 05/02/21 05/03/21 05/03/21 22:59 06:59 14:59 Intake Total 467 / 767 610 / 610 Output Total 1000 / 1000 Balance 467 / 167 -390 / -390 Physical Exam Const: COMMON NORMALS: no acute distress and patient oriented x3 Resp: COMMON NORMALS: normal respiratory effort, No retractions, No use of accessory muscles and clear to auscultation bilaterally AUSCULTATION: clear to auscultation bilaterally Cardio: COMMON NORMALS: regular rate, regular rhythm, S1 normal heart sound present and S2 normal heart sound present RATE: regular rate RHYTHM: regular rhythm HEART SOUNDS: S1 normal heart sound present and S2 normal heart sound present GI: COMMON NORMALS: Normal to inspection, nondistended, normoactive bowel sounds present, Soft to palpation, non-tender and No hepatosplenomegaly present PALPATION: Yes Soft to palpation and Yes No hepatosplenomegaly present Extremity: COMMON NORMALS: no pedal edema Neuro: COMMON NORMALS: patient oriented x3 Psych: COMMON NORMALS: mental status grossly normal Data : 05/03/21 05:20 05/03/21 05:20 Micro: Microbiology 04/30/21 18:15 Gram Stain - Final Sputum - Expectorated Sputum Sputum Culture - Final A&P Assessment and plan (1) Acute respiratory failure with hypoxia: -Secondary to COVID-19 pneumonia, possible secondary bacterial infection, transaminitis Plan: -On Covid unit -Currently on on 15L -Continue Decadron -Continue remdesivir -Status post 1 dose of Actemra 05/02/2021, discussed the risks and benefits, he voiced understanding, all questions answered, agreed to proceed -CRP 109.8, ferritin 1706, pro-Stefan 0.18 -Vitamin C, zinc, vitamin D - broad-spectrum antibiotic therapy, Rocephin, azithromycin for secondary bacterial pneumonia prophylaxis -Albuterol, budesonide -Oxygen therapy, wean as tolerated -Incentive spirometer, flutter valve, continue ambulation, prone positioning -Follow blood cultures, sputum cultures, urine bacterial antigens -Monitor inflammatory markers -Lovenox for DVT prophylaxis -Protonix for GI prophylaxis -Patient wants CPR, wants drugs per ACLS, wants defibrillation, however does not want intubation Plan for today, continue pulmonary toilet, continue to wean oxygen, continue antibiotics, continue Decadron, continue remdesivir Status: Acute (2) Pneumonia due to COVID-19 virus: Status: Acute (3) Transaminitis: Status: Acute Additional A&P Information Elevated INR, 1.10, continue to monitor Borderline low ejection fraction 50%, mild diffuse hypokinesis of the left ventricle, will do a trial of Lasix 40 mg today Moderate eccentric tricuspid regurgitation Prominent coronary sinus, 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
[2021-05-03] MEDS: cefTRIAXone 1,000 MG in sodium chloride 0.9% (plus) 50 ML 100 MG IV (12:25)
[2021-05-03] MEDS: dexamethasone 10 mg/mL INJ 6 MG IVP (15:27)
[2021-05-03] MEDS: enoxaparin 40 mg/0.4 mL Syringe SUBCUT (16:33)
[2021-05-03] MEDS: remdesivir 100 MG in sodium chloride 0.9% (100 ml) 100 ML IV (17:18)
--- NOTE | 2021-05-03 22:42 | PC.RESP ---
RT Shift Note Frequent safety and respiratory rounds continue. Orders completed as indicated. Patient monitored pre and post treatments throughout shift. Patient [Did. tolerate treatments appropriately. Condition [.DidNotChange]. Patient and/or international account representative educated on respiratory treatment and medications. Patient and/or international account representative [ResponseToTeaching]. Will continue to monitor patient progress.
[2021-05-04] VITALS (11 sets, daily range): BP systolic 103–142; BP diastolic 55–87; PULSE 55–78; RESP 17–28; TEMP 36.3–36.7; O2SAT 90–97
[2021-05-04 06:16] LABS: Basophils % 0.1 %; Hematocrit 41.3 % (42.0-52.0); Hemoglobin 13.5 g/dL (11.7-16.6); Lymphocytes # 0.8 10^3/uL (0.8-4.8); Lymphocytes % 7.6 %; Mean Corpuscular HGB Conc 32.7 g/dL (30.0-36.0); Mean Corpuscular Hemoglobin 28.7 pg (28.0-34.0); Mean Corpuscular Volume 87.9 fl (80-94); Mean Platelet Volume 9.9 fL (7.4-10.4); Monocytes # 0.8 10^3/uL (0.2-0.9); Monocytes % 8.1 %; Neutrophils # 8.61 10^3/uL (1.8-7.7); Neutrophils % 83.2 %; Nucleated Red Blood Cells % 0 %; Platelet Count 490 10^3/cmm (130-400); White Blood Count 10.4 10^3/uL (4.0-10.0)
[2021-05-04 06:39] LABS: Alanine Aminotransferase 142 U/L (0-41); Albumin Level 2.7 g/dL (3.5-5.2); Alkaline Phosphatase 144 IU/L (40-130); Anion Gap 12.9 (5-19); Aspartate Amino Transferase 85 U/L (0-40); Blood Urea Nitrogen 23 mg/dL (8-23); C Reactive Protein 50.9 mg/L (0.0-4.9); Calcium 8.2 mg/dL (8.5-10.5); Carbon Dioxide 27 mmol/L (22-29); Chloride 103 mmol/L (98-107); Globulin 3.8 g/dL (1.3-4.6); Glucose 131 mg/dL (65-115); Magnesium 2.1 mg/dL (1.7-2.3); Osmolality Calculated 291 mOsm/kg (285-295); Phosphorus 2.7 mg/dL (2.5-4.5); Potassium 4.9 mmol/L (3.5-5.1); Sodium 138 mmol/L (136-145); Total Bilirubin 0.2 mg/dL (0.15-1.2); Total Protein 6.5 g/dL (6.6-8.7)
--- NOTE | 2021-05-04 06:41 | PC.NURSE ---
Patient had a lower heart rate than average last night. He slept very hard and stated he feels good this morning. Will continue to monitor.
[2021-05-04 06:49] LABS: NT Pro B Type Natriuretic Pept 600 pg/mL (0-125); Procalcitonin 0.12 ng/mL (0-0.5)
--- NOTE | 2021-05-04 08:52 | PC.CHAP ---
Pastoral Care Encounter/Spiritual Assessment Type of Contact [] Declined surgical specialist visit [] Patient/Family/Request visit [] Outpatient visit [] Follow-up visit [] Physician referral [] Code/Alert [x] Routine visit [] Staff referral [] Actively dying [] Patient sleeping [] Family support [] [] Out of room [] Palliative care [] [] Receiving care in room [] Pre-surgical visit [] Trauma [] Long length of stay [] ICU visit [x] Other: 2a Relational/Emotional Strength [] Patient feels connected with others/family/visitors/staff [] Distress [] Loneliness/isolation [] Abandonment Spirituality of Patient [] Person of Mariah [] Attends Lutheran of their Mariah [] Believes in Prayer [] Reads Bible or Orthodox materials [] There are Spiritual issues to be addressed Communications And Signals Supervisor Interventions [x] Prayer [] Active listening [] Non-anxious presence [] Spiritual/emotional support [] Crisis/trauma care [] Spiritual counseling [] Bereavement support [] Provided bereavement packet [] Provided Bible/devotional materials [] Provided toy/stuffed animal, coloring book to patient or family member [] Provided Communion [] Anointing/[place] [] Salvation [x] Completed spiritual assessment [] Other: Impact on Illness or Injury [] Angry [] Fearful [] Anxious [] Often cries [] Exhaustion [] Unable to work [] Unable to attend mandaen [] Unable to walk/stand [] Unable to read [] Unable to drive [] Unable to eat/drink [] Unable to sleep [] Unable to be with family [] Patient intubated [] Other: Summary moved patient from 201 to 204.... resting well.. served breakfast Time spent with patient
[2021-05-04] MEDS: budesonide 0.5 mg/2 mL Neb INHALATION ×2 (09:36→19:29)
--- NOTE | 2021-05-04 09:40 | PC.RESP ---
RT Shift Note Frequent safety and respiratory rounds continue. Orders completed as indicated. Patient monitored pre and post treatments throughout shift. Patient [Did.] tolerate treatments appropriately. Condition [.DidNotChange]. Patient and/or sales representative womens health educated on respiratory treatment and medications. Patient and/or sales representative womens health [verbalized understanding]. Will continue to monitor patient progress.
[2021-05-04] MEDS: cholecalciferol (vitamin D3) 1,000 unit Tablet 1000 UNIT PO (10:18)
[2021-05-04] MEDS: pantoprazole DR 40 mg Tablet PO (10:19)
[2021-05-04] MEDS: zinc gluconate 50 mg Tablet PO (10:19)
[2021-05-04] MEDS: azithromycin 500 MG in sodium chloride 0.9% 250 ML 250 MG IV (10:19)
[2021-05-04] MEDS: ascorbic acid 500 mg Tablet PO ×2 (10:19→18:31)
[2021-05-04] MEDS: cefTRIAXone 1,000 MG in sodium chloride 0.9% (plus) 50 ML 100 MG IV (14:00)
[2021-05-04] MEDS: dexamethasone 10 mg/mL INJ 6 MG IVP (14:01)
--- NOTE | 2021-05-04 17:04 | PM.PN ---
Subjective Subjective: Interval history: Patient tells me he is doing better, he is down to 15L, afebrile overnight, no nausea, no vomiting, no chest pain, no abdominal pain Vitals/I&O/Wt Last Vital Signs Temp 97.9 F 05/04/21 03:27 Pulse 60 05/04/21 14:00 Resp 18 05/04/21 12:00 BP 103/55 05/04/21 12:00 Pulse Ox 97 05/04/21 12:00 05/04/21 05/04/21 05/04/21 06:59 14:59 22:59 Intake Total 360 / 360 Balance 360 / 360 Physical Exam Const: COMMON NORMALS: no acute distress and patient oriented x3 Resp: COMMON NORMALS: normal respiratory effort, No retractions, No use of accessory muscles and clear to auscultation bilaterally AUSCULTATION: clear to auscultation bilaterally Cardio: COMMON NORMALS: regular rate, regular rhythm, S1 normal heart sound present and S2 normal heart sound present RATE: regular rate RHYTHM: regular rhythm HEART SOUNDS: S1 normal heart sound present and S2 normal heart sound present GI: COMMON NORMALS: Normal to inspection, nondistended, normoactive bowel sounds present, Soft to palpation and non-tender PALPATION: Yes Soft to palpation Extremity: COMMON NORMALS: no pedal edema Neuro: COMMON NORMALS: patient oriented x3 Psych: COMMON NORMALS: mental status grossly normal Data : 05/04/21 05:30 05/04/21 05:30 A&P Assessment and plan (1) Acute respiratory failure with hypoxia: -Secondary to COVID-19 pneumonia, possible secondary bacterial infection, transaminitis Plan: -On Covid unit -Currently on on 15L -Continue Decadron -Remdesivir 12/15 -Status post 1 dose of Actemra 05/02/2021, discussed the risks and benefits, he voiced understanding, all questions answered, agreed to proceed -CRP 50.9 -Vitamin C, zinc, vitamin D - broad-spectrum antibiotic therapy, Rocephin, azithromycin for secondary bacterial pneumonia prophylaxis -Albuterol, budesonide -Oxygen therapy, wean as tolerated -Incentive spirometer, flutter valve, continue ambulation, prone positioning -Follow blood cultures, sputum cultures, urine bacterial antigens -Monitor inflammatory markers -We will give 1 dose of Lasix today -Given elevated liver function, alk phos, will do right upper quadrant ultrasound -Lovenox for DVT prophylaxis -Protonix for GI prophylaxis -Patient wants CPR, wants drugs per ACLS, wants defibrillation, however does not want intubation Plan for today, continue pulmonary toilet, continue to wean oxygen, continue antibiotics, continue Decadron, 1 dose of Lasix, right upper quad ultrasound Status: Acute (2) Pneumonia due to COVID-19 virus: Status: Acute (3) Transaminitis: Status: Acute Additional A&P Information Elevated INR, 1.10, continue to monitor Borderline low ejection fraction 50%, mild diffuse hypokinesis of the left ventricle, will do a trial of Lasix 40 mg today Moderate eccentric tricuspid regurgitation Prominent coronary sinus, 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
[2021-05-04] MEDS: FUROsemide 10 mg/mL SDV 4mL 40 MG IVP (18:31)
[2021-05-04] MEDS: enoxaparin 40 mg/0.4 mL Syringe SUBCUT (18:31)
[2021-05-04] MEDS: remdesivir 100 MG in sodium chloride 0.9% (100 ml) 100 ML IV (18:38)
[2021-05-05] VITALS (16 sets, daily range): BP systolic 95–124; BP diastolic 51–80; PULSE 50–79; RESP 16–24; TEMP 36.3–36.8; O2SAT 91–98
--- NOTE | 2021-05-05 00:21 | PC.NURSE ---
Blood pressure and HR low. Left message for hospitalist. From hx looks like patient drops lower at night while sleeping. Will continue to monitor.
[2021-05-05 05:42] LABS: Hematocrit 40.9 % (42.0-52.0); Hemoglobin 13.3 g/dL (11.7-16.6); Lymphocytes # 0.7 10^3/uL (0.8-4.8); Lymphocytes % 7.7 %; Mean Corpuscular HGB Conc 32.5 g/dL (30.0-36.0); Mean Corpuscular Hemoglobin 28.9 pg (28.0-34.0); Mean Corpuscular Volume 88.7 fl (80-94); Monocytes # 0.7 10^3/uL (0.2-0.9); Monocytes % 7.3 %; Neutrophils # 7.72 10^3/uL (1.8-7.7); Neutrophils % 83.6 %; Nucleated Red Blood Cells % 0 %; Platelet Count 547 10^3/cmm (130-400); Red Blood Count 4.61 10^6/uL (4.1-5.3); Red Cell Distribution Width 13.2 % (12.1-15.1); White Blood Count 9.2 10^3/uL (4.0-10.0)
--- NOTE | 2021-05-05 06:00 | US_ITS ---
WS: [id number] ULTRASOUND ABDOMEN LIMITED CLINICAL INFORMATION: liver and gallbladder for transamintis COMPARISON: None. FINDINGS: Liver Size: Upper limits of normal Craniocaudal length: 15.6 cm. Echogenicity: Normal. Surface nodularity: None. Mass (size and location): None. Bile ducts Intrahepatic ducts: Normal. Common bile duct diameter: 0.4 cm. Gallbladder 4.8 mm echogenic nonshadowing lesion in the gallbladder likely represents gallbladder polyp Gallstones: None. Gallbladder sludge: None. Gallbladder wall thickening: None. Pericholecystic fluid: None. Sonographic Morgan sign: Absent. Pancreas Normal as visualized. Right kidney: Normal. Hydronephrosis: None. Size: 11.1 cm x 4.4 cm x 4.1 cm. Abdominal aorta and IVC Visualized portions are normal. Ascites: None. US/US abdomen limited [id number] IMPRESSION: 1. 4.8 mm echogenic nonshadowing lesion in the gallbladder likely represents g allbladder polyp versus possibly sludge ball. No gallbladder wall thickening. 2. Normal common bile duct. 3. Liver size upper limits of normal. 4. No hydronephrosis in right kidney.
[2021-05-05 06:01] LABS: Alanine Aminotransferase 169 U/L (0-41); Albumin Level 2.8 g/dL (3.5-5.2); Alkaline Phosphatase 136 IU/L (40-130); Anion Gap 13.7 (5-19); Aspartate Amino Transferase 70 U/L (0-40); Blood Urea Nitrogen 29 mg/dL (8-23); C Reactive Protein 25.9 mg/L (0.0-4.9); Calcium 8.4 mg/dL (8.5-10.5); Carbon Dioxide 26 mmol/L (22-29); Chloride 104 mmol/L (98-107); Globulin 3.7 g/dL (1.3-4.6); Glucose 124 mg/dL (65-115); Magnesium 1.9 mg/dL (1.7-2.3); Osmolality Calculated 295 mOsm/kg (285-295); Phosphorus 3.2 mg/dL (2.5-4.5); Potassium 4.7 mmol/L (3.5-5.1); Sodium 139 mmol/L (136-145); Total Bilirubin 0.3 mg/dL (0.15-1.2); Total Protein 6.5 g/dL (6.6-8.7)
[2021-05-05 06:08] LABS: NT Pro B Type Natriuretic Pept 402 pg/mL (0-125); Procalcitonin 0.09 ng/mL (0-0.5)
--- NOTE | 2021-05-05 06:21 | PC.NURSE ---
Patient resting in bed with complaints of throat and chest pain. Hydrocodone given. CHest tube clamped again. WIll continue to monitor.
--- NOTE | 2021-05-05 06:23 | PC.NURSE ---
Patient blood pressure and heart rate saft. No complaints of pain. Ultrasound being done now. Will continue to monitor.
[2021-05-05] MEDS: budesonide 0.5 mg/2 mL Neb INHALATION ×2 (08:06→19:46)
--- NOTE | 2021-05-05 08:38 | PC.CHAP ---
Pastoral Care Encounter/Spiritual Assessment Type of Contact [] Declined electric organ checker visit [] Patient/Family/Request visit [] Outpatient visit [] Follow-up visit [] Physician referral [] Code/Alert [x] Routine visit [] Staff referral [] Actively dying [] Patient sleeping [] Family support [] [] Out of room [] Palliative care [] [] Receiving care in room [] Pre-surgical visit [] Trauma [] Long length of stay [] ICU visit [x] Other:2a patient feeling better today.. served breakfast Relational/Emotional Strength [] Patient feels connected with others/family/visitors/staff [] Distress [] Loneliness/isolation [] Abandonment Spirituality of Patient [] Person of Mariah [] Attends Congregation of their Mariah [] Believes in Prayer [] Reads Bible or Latter-Day materials [] There are Spiritual issues to be addressed [place] [employer] Interventions [x] Prayer [] Active listening [] Non-anxious presence [] Spiritual/emotional support [] Crisis/trauma care [] Spiritual counseling [] Bereavement support [] Provided bereavement packet [] Provided Bible/devotional materials [] Provided toy/stuffed animal, coloring book to patient or family member [] Provided Communion [] Anointing/[place] [] Salvation [x] Completed spiritual assessment [] Other: Impact on Illness or Injury [] Angry [] Fearful [] Anxious [] Often cries [] Exhaustion [] Unable to work [] Unable to attend buddhist [] Unable to walk/stand [] Unable to read [] Unable to drive [] Unable to eat/drink [] Unable to sleep [] Unable to be with family [] Patient intubated [] Other: Summary Time spent with patient
--- NOTE | 2021-05-05 08:41 | PC.NURSE ---
notified Dr Campo that patient is requesting a call with update from
[2021-05-05] MEDS: cholecalciferol (vitamin D3) 1,000 unit Tablet 1000 UNIT PO (08:48)
[2021-05-05] MEDS: ascorbic acid 500 mg Tablet PO ×2 (08:48→17:49)
[2021-05-05] MEDS: pantoprazole DR 40 mg Tablet PO (08:48)
[2021-05-05] MEDS: azithromycin 500 MG in sodium chloride 0.9% 250 ML 250 MG IV (08:48)
[2021-05-05] MEDS: zinc gluconate 50 mg Tablet PO (08:49)
[2021-05-05] MEDS: FUROsemide 10 mg/mL SDV 4mL 40 MG IVP (09:46)
--- NOTE | 2021-05-05 11:46 | PC.SOCIAL ---
IMM Update Pg.2 of IMM updated and reviewed with patient over the phone. Verbalized understanding.
[2021-05-05] MEDS: cefTRIAXone 1,000 MG in sodium chloride 0.9% (plus) 50 ML 100 MG IV (12:01)
--- NOTE | 2021-05-05 12:12 | PM.PN ---
Subjective Subjective: Interval history: Patient was seen this morning, he is working with physical therapy, he tells me that he is able to get up and sit in a chair without feeling lightheaded, overall he is feeling better, is down to 12 L Vitals/I&O/Wt Last Vital Signs Temp 98.1 F 05/05/21 11:38 Pulse 60 05/05/21 11:38 Resp 18 05/05/21 11:38 BP 96/51 05/05/21 11:38 Pulse Ox 97 05/05/21 11:38 05/04/21 05/05/21 05/05/21 22:59 06:59 14:59 Intake Total 100 / 760 610 / 610 Output Total 600 / 600 Balance -500 / 160 610 / 610 Physical Exam Const: COMMON NORMALS: no acute distress and patient oriented x3 Resp: COMMON NORMALS: normal respiratory effort, No retractions, No use of accessory muscles and clear to auscultation bilaterally AUSCULTATION: clear to auscultation bilaterally Cardio: COMMON NORMALS: regular rate, regular rhythm, S1 normal heart sound present and S2 normal heart sound present RATE: regular rate RHYTHM: regular rhythm HEART SOUNDS: S1 normal heart sound present and S2 normal heart sound present GI: COMMON NORMALS: Normal to inspection, nondistended, normoactive bowel sounds present and Soft to palpation PALPATION: Yes Soft to palpation Extremity: COMMON NORMALS: no pedal edema Neuro: COMMON NORMALS: patient oriented x3 Data : 05/05/21 04:33 05/05/21 04:33 Micro: Microbiology 04/30/21 10:40 Blood Culture - Final Blood NO GROWTH AFTER 5 DAYS 04/30/21 10:35 Blood Culture - Final Blood NO GROWTH AFTER 5 DAYS A&P Assessment and plan (1) Acute respiratory failure with hypoxia: -Secondary to COVID-19 pneumonia, possible secondary bacterial infection, transaminitis Plan: -On Covid unit -Currently on on 12 L -Continue Decadron -Remdesivir 12/15 -Status post 1 dose of Actemra 05/02/2021, discussed the risks and benefits, he voiced understanding, all questions answered, agreed to proceed -Vitamin C, zinc, vitamin D - broad-spectrum antibiotic therapy, Rocephin, azithromycin for secondary bacterial pneumonia prophylaxis -Albuterol, budesonide -Oxygen therapy, wean as tolerated -Incentive spirometer, flutter valve, continue ambulation, prone positioning -Follow blood cultures, sputum cultures, urine bacterial antigens -Monitor inflammatory markers -We will give 1 dose of Lasix today -Given elevated liver function, alk phos, will do right upper quadrant ultrasound -Lovenox for DVT prophylaxis -Protonix for GI prophylaxis -Patient wants CPR, wants drugs per ACLS, wants defibrillation, however does not want intubation Plan for today, continue pulmonary toilet, continue to wean oxygen, continue antibiotics, continue Decadron, 1 dose of Lasix Status: Acute (2) Pneumonia due to COVID-19 virus: Status: Acute (3) Transaminitis: Status: Acute (4) Myocarditis due to 2019 novel coronavirus: Status: Acute Additional A&P Information Elevated INR, 1.10, continue to monitor 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, borderline low ejection fraction 50%, mild diffuse hypokinesis of the left ventricle, continue aspirin, statin will discharge on Metroprolol 12.5 twice daily, lisinopril 5 mg Moderate eccentric tricuspid regurgitation, might benefit from a transesophageal echocardiogram as outpatient Prominent coronary sinus, 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
[2021-05-05] MEDS: dexamethasone 10 mg/mL INJ 6 MG IVP (14:18)
[2021-05-05] MEDS: enoxaparin 40 mg/0.4 mL Syringe SUBCUT (17:48)
--- NOTE | 2021-05-05 19:35 | PC.NURSE ---
Shift Note Frequent safety and comfort rounds continue. Orders and/or nursing care completed as indicated. Patient monitored for response to intervention and treatment(s). Education provided includes treatment plan. Patient and/or containers sales representative verbalizes understanding. Will continue to monitor.
[2021-05-05] MEDS: atorvastatin 40 mg Tablet PO (20:36)
[2021-05-06] VITALS (12 sets, daily range): BP systolic 102–126; BP diastolic 60–69; PULSE 51–86; RESP 16–27; TEMP 36.1–37.2; O2SAT 92–96
[2021-05-06 07:02] LABS: Basophils % 0.1 %; Hematocrit 41.3 % (42.0-52.0); Hemoglobin 13.3 g/dL (11.7-16.6); Lymphocytes % 9.7 %; Mean Corpuscular HGB Conc 32.2 g/dL (30.0-36.0); Mean Corpuscular Hemoglobin 28.4 pg (28.0-34.0); Mean Corpuscular Volume 88.2 fl (80-94); Mean Platelet Volume 9.7 fL (7.4-10.4); Monocytes # 0.9 10^3/uL (0.2-0.9); Monocytes % 9.2 %; Neutrophils # 7.77 10^3/uL (1.8-7.7); Neutrophils % 79.1 %; Nucleated Red Blood Cells % 0 %; Platelet Count 582 10^3/cmm (130-400); Red Blood Count 4.68 10^6/uL (4.1-5.3); Red Cell Distribution Width 13.2 % (12.1-15.1); White Blood Count 9.8 10^3/uL (4.0-10.0)
[2021-05-06] MEDS: budesonide 0.5 mg/2 mL Neb INHALATION ×2 (07:25→20:43)
[2021-05-06 07:28] LABS: Alanine Aminotransferase 185 U/L (0-41); Albumin Level 2.9 g/dL (3.5-5.2); Alkaline Phosphatase 127 IU/L (40-130); Anion Gap 11.8 (5-19); Aspartate Amino Transferase 58 U/L (0-40); Blood Urea Nitrogen 28 mg/dL (8-23); C Reactive Protein 13.7 mg/L (0.0-4.9); Calcium 8.5 mg/dL (8.5-10.5); Carbon Dioxide 30 mmol/L (22-29); Chloride 102 mmol/L (98-107); Globulin 3.5 g/dL (1.3-4.6); Glucose 116 mg/dL (65-115); Magnesium 1.9 mg/dL (1.7-2.3); Osmolality Calculated 294 mOsm/kg (285-295); Potassium 4.8 mmol/L (3.5-5.1); Sodium 139 mmol/L (136-145); Total Bilirubin 0.4 mg/dL (0.15-1.2); Total Protein 6.4 g/dL (6.6-8.7)
[2021-05-06 08:01] LABS: NT Pro B Type Natriuretic Pept 307 pg/mL (0-125); Procalcitonin 0.07 ng/mL (0-0.5)
[2021-05-06] MEDS: cholecalciferol (vitamin D3) 1,000 unit Tablet 1000 UNIT PO (08:51)
[2021-05-06] MEDS: azithromycin 250 mg Tablet PO (08:51)
[2021-05-06] MEDS: aspirin 81 mg EC Tablet PO (08:51)
[2021-05-06] MEDS: ascorbic acid 500 mg Tablet PO ×2 (08:51→17:31)
[2021-05-06] MEDS: zinc gluconate 50 mg Tablet PO (08:51)
[2021-05-06] MEDS: pantoprazole DR 40 mg Tablet PO (08:51)
[2021-05-06] MEDS: cefTRIAXone 1,000 MG in sodium chloride 0.9% (plus) 50 ML 200 MG IV (12:45)
--- NOTE | 2021-05-06 13:15 | P.PN_ITS ---
Subjective Subjective: Interval history: Patient was seen this morning, he is in good spirits, he has been doing bedside exercises, no fevers night, no shortness of breath, he is on 9 L Vitals/I&O/Wt Last Vital Signs Temp 97.7 F 05/06/21 12:00 Pulse 67 05/06/21 12:00 Resp 18 05/06/21 12:00 BP 117/63 05/06/21 12:00 Pulse Ox 92 05/06/21 12:00 05/05/21 05/06/21 05/06/21 22:59 06:59 14:59 Intake Total 360 / 1380 240 / 240 Balance 360 / 1380 240 / 240 Physical Exam Const: COMMON NORMALS: no acute distress and patient oriented x3 Resp: COMMON NORMALS: normal respiratory effort, No retractions, No use of accessory muscles and clear to auscultation bilaterally AUSCULTATION: clear to auscultation bilaterally Cardio: COMMON NORMALS: regular rate, regular rhythm, S1 normal heart sound present and S2 normal heart sound present RATE: regular rate RHYTHM: regular rhythm HEART SOUNDS: S1 normal heart sound present and S2 normal heart sound present GI: COMMON NORMALS: Normal to inspection, nondistended, normoactive bowel sounds present, Soft to palpation and non-tender PALPATION: Yes Soft to palpation Extremity: COMMON NORMALS: no pedal edema Neuro: COMMON NORMALS: patient oriented x3 Psych: COMMON NORMALS: mental status grossly normal Data : 05/06/21 06:10 05/06/21 06:10 Micro: Microbiology 04/30/21 10:40 Blood Culture - Final Blood NO GROWTH AFTER 5 DAYS 04/30/21 10:35 Blood Culture - Final Blood NO GROWTH AFTER 5 DAYS A&P Assessment and plan (1) Acute respiratory failure with hypoxia: -Secondary to COVID-19 pneumonia, possible secondary bacterial infection, transaminitis Plan: -On Covid unit -Currently on 9 L -Continue Decadron -Remdesivir 01/14 -Status post 1 dose of Actemra 05/02/2021, discussed the risks and benefits, he voiced understanding, all questions answered, agreed to proceed -Vitamin C, zinc, vitamin D - broad-spectrum antibiotic therapy, Rocephin, azithromycin for secondary bacterial pneumonia prophylaxis -Albuterol, budesonide -Oxygen therapy, wean as tolerated -Incentive spirometer, flutter valve, continue ambulation, prone positioning -Follow blood cultures, sputum cultures, urine bacterial antigens -Monitor inflammatory markers -Hold off on Lasix for today -Given elevated liver function, alk phos, will do right upper quadrant ultrasound -Lovenox for DVT prophylaxis -Protonix for GI prophylaxis -Patient wants CPR, wants drugs per ACLS, wants defibrillation, however does not want intubation Plan for today, continue pulmonary toilet, continue to wean oxygen, continue antibiotics, continue Decadron, potential discharge x-ray 4 hours Status: Acute (2) Pneumonia due to COVID-19 virus: Status: Acute (3) Transaminitis: Status: Acute (4) Myocarditis due to 2019 novel coronavirus: Status: Acute Additional A&P Information Elevated INR, 1.10, continue to monitor 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, borderline low ejection fraction 50%, mild diffuse hypokinesis of the left ventricle, continue aspirin, statin will discharge on Metroprolol 12.5 twice daily, lisinopril 5 mg Moderate eccentric tricuspid regurgitation, might benefit from a transesophageal echocardiogram as outpatient Prominent coronary sinus, 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
[2021-05-06] MEDS: dexamethasone 10 mg/mL INJ 6 MG IVP (13:49)
[2021-05-06] MEDS: enoxaparin 40 mg/0.4 mL Syringe SUBCUT (16:11)
--- NOTE | 2021-05-06 18:39 | PC.NURSE ---
Shift Note Frequent safety and comfort rounds continue. Orders and/or nursing care completed as indicated. Patient monitored for response to intervention and treatment(s). Education provided includes treatment plan. Patient and/or fraud representative verbalizes understanding. Pt has had an uneventful day today. No complaints. Transitioned well to ND at 3L and has saturated well in the 90's. Will continue to monitor.
[2021-05-06] MEDS: atorvastatin 40 mg Tablet PO (20:03)
[2021-05-07] VITALS (8 sets, daily range): BP systolic 101–120; BP diastolic 56–76; PULSE 52–74; RESP 16–27; TEMP 36.6–36.8; O2SAT 85–95
[2021-05-07 06:45] LABS: Basophils % 0.1 %; Eosinophils % 0.1 %; Hematocrit 40.3 % (42.0-52.0); Lymphocytes # 1.5 10^3/uL (0.8-4.8); Lymphocytes % 14.6 %; Mean Corpuscular HGB Conc 32.3 g/dL (30.0-36.0); Mean Corpuscular Hemoglobin 28.8 pg (28.0-34.0); Mean Corpuscular Volume 89.2 fl (80-94); Neutrophils # 7.57 10^3/uL (1.8-7.7); Neutrophils % 72.7 %; Nucleated Red Blood Cells % 0 %; Platelet Count 506 10^3/cmm (130-400); Red Blood Count 4.52 10^6/uL (4.1-5.3); Red Cell Distribution Width 13.1 % (12.1-15.1); White Blood Count 10.4 10^3/uL (4.0-10.0)
[2021-05-07 07:03] LABS: Alanine Aminotransferase 146 U/L (0-41); Albumin Level 2.9 g/dL (3.5-5.2); Alkaline Phosphatase 112 IU/L (40-130); Anion Gap 10.9 (5-19); Aspartate Amino Transferase 43 U/L (0-40); Blood Urea Nitrogen 24 mg/dL (8-23); C Reactive Protein 9.6 mg/L (0.0-4.9); Calcium 8.2 mg/dL (8.5-10.5); Carbon Dioxide 30 mmol/L (22-29); Chloride 103 mmol/L (98-107); Globulin 3.4 g/dL (1.3-4.6); Glucose 107 mg/dL (65-115); Magnesium 2.2 mg/dL (1.7-2.3); Osmolality Calculated 293 mOsm/kg (285-295); Phosphorus 3.5 mg/dL (2.5-4.5); Potassium 4.9 mmol/L (3.5-5.1); Sodium 139 mmol/L (136-145); Total Bilirubin 0.4 mg/dL (0.15-1.2); Total Protein 6.3 g/dL (6.6-8.7)
[2021-05-07 07:17] LABS: NT Pro B Type Natriuretic Pept 289 pg/mL (0-125); Procalcitonin 0.05 ng/mL (0-0.5)
--- NOTE | 2021-05-07 08:04 | PC.SOCIAL ---
IMM Update Pg. 2 of IMM Updated with patient over the phone. Verbalized Understanding. Initialed, dated, and timed copy in chart.
[2021-05-07] MEDS: budesonide 0.5 mg/2 mL Neb INHALATION (08:25)
[2021-05-07] MEDS: pantoprazole DR 40 mg Tablet PO (08:44)
[2021-05-07] MEDS: azithromycin 250 mg Tablet PO (08:44)
[2021-05-07] MEDS: cholecalciferol (vitamin D3) 1,000 unit Tablet 1000 UNIT PO (08:45)
[2021-05-07] MEDS: ascorbic acid 500 mg Tablet PO (08:45)
[2021-05-07] MEDS: aspirin 81 mg EC Tablet PO (08:45)
[2021-05-07] MEDS: zinc gluconate 50 mg Tablet PO (08:45)
--- NOTE | 2021-05-07 11:02 | P.DS_ITS ---
Discharge Providers Date of Admission: 04/30/21 12:56 Date of Discharge: May 07, 2021 Attending Provider at Admission: Itz Campo MD Attending Provider at Discharge: Itz Campo MD Diagnoses at Discharge Discharge Diagnosis (1) Acute respiratory failure with hypoxia: Status: Acute (2) Pneumonia due to COVID-19 virus: Status: Acute (3) Transaminitis: Status: Acute (4) Myocarditis due to 2019 novel coronavirus: Status: Acute Reason for Visit Reason for Visit: worsening covid symptoms Hospital Course Hospital Course This is a 76-year-old male with no significant past medical history who presents [facility] due to shortness of breath, Patient was admitted to [facility] for acute respiratory failure with hypoxia secondary to COVID-19 pneumonia, was admitted to the Covid unit, placed on high flow, received Decadron, 5 days of remdesivir, 1 dose of Actemra, broad- spectrum antibiotic therapy, vitamin C, zinc, vitamin D, incentive spirometer use, flutter valve use, pulmonary toilet, intermittent diuresis, and clinically monitored. Patient slowly clinically improved, was weaned to nasal cannula, ambulating without significant symptomatology, ambulating well without the need of physical therapy. I have discharged the patient on 3 L nasal cannula, albuterol, Advair, vitamin C, zinc, vitamin D, with close follow-up with primary care provider as outpatient. Patient was advised to continue to self isolate, socially distance, facemask, hand wash. Patient was advised to discuss with primary care provider about COVID-19 vaccination. In terms of his hypercoagulability risk associated with COVID-19, no history of DVT or PEs, no recent surgery, thus he is a low risk of developing clots, but low risk does not mean no risk, he is fairly mobile, patient was advised to continue to be mobile, monitor for signs of DVT or PE if so go to emergency room. Patient was also found to have myocarditis associated with COVID-19, with a borderline low ejecti on fraction 50%, and mild diffuse hypokinesis of left ventricle. Patient was discharged on aspirin, statin with a close follow-up with cardiology as outpatient. Patient's blood pressure could not tolerate lisinopril. Patient's heart rate could not tolerate metoprolol, due to bradycardia. In addition, patient's echocardiogram findings could be secondary to possible underlying ischemic disease, thus I will have patient follow-up with cardiology to decide further work-up, patient was advised if he were to have chest pain to go to the emergency room. Patient's echocardiogram also showed moderate eccentric tricuspid regurgitation, he might benefit from a transesophageal echocardiogram, will have patient follow-up with cardiology as above. Physical Exam Const: COMMON NORMALS: no acute distress and patient oriented x3 Resp: COMMON NORMALS: normal respiratory effort, No retractions, No use of accessory muscles and clear to auscultation bilaterally AUSCULTATION: clear to auscultation bilaterally Cardio: COMMON NORMALS: regular rate, regular rhythm, S1 normal heart sound present and S2 normal heart sound present RATE: regular rate RHYTHM: regular rhythm HEART SOUNDS: S1 normal heart sound present and S2 normal heart sound present GI: COMMON NORMALS: Normal to inspection, nondistended, normoactive bowel sounds present, Soft to palpation and non-tender PALPATION: Yes Soft to palpation Extremity: COMMON NORMALS: no pedal edema Neuro: COMMON NORMALS: patient oriented x3 Psych: COMMON NORMALS: mental status grossly normal Discharge Data Data Completed and Pending: Completed Studies During Hospitalization Category Date Time Status CT angio chest PE protcl [id number] Urge nt Cat Scan 04/30/21 12:29 Completed XR chest 1V sigifredo ble [id number] Stat Exams 04/30/21 10:25 Completed CV. echo complete * [id number] Routine Ultrasound 04/30/21 15:01 Completed US abdomen limite d [id number] Routine Ultrasound 05/05/21 06:00 Completed Pending at discharge Category Date Time Status C Reactive Protei n AM LABS Lab 05/08/21 04:00 Ordered C Reactive Protei n AM LABS Lab 05/09/21 04:00 Ordered Complete Blood Co unt w/Auto AM LABS Lab 05/08/21 04:00 Ordered Complete Blood Co unt w/Auto AM LABS Lab 05/09/21 04:00 Ordered Comprehensive Met abolic Panel AM LA BS Lab 05/08/21 04:00 Ordered Comprehensive Met abolic Panel AM LA BS Lab 05/09/21 04:00 Ordered Magnesium AM LABS Lab 05/08/21 04:00 Ordered Magnesium AM LABS Lab 05/09/21 04:00 Ordered NT Pro B Type Dary riuretic Pept QAM Lab 05/08/21 06:00 Ordered NT Pro B Type Dary riuretic Pept QAM Lab 05/09/21 06:00 Ordered Phosphorus AM LAB S Lab 05/08/21 04:00 Ordered Phosphorus AM LAB S Lab 05/09/21 04:00 Ordered Procalcitonin AM LABS Lab 05/08/21 04:00 Ordered Procalcitonin AM LABS Lab 05/09/21 04:00 Ordered Labs from last 24 hours 05/07/21 05/07/21 05/07/21 06:15 06:15 06:15 WBC 10.4 H RBC 4.52 Hgb 13.0 Hct 40.3 L MCV 89.2 MCH 28.8 MCHC 32.3 RDW 13.1 Plt Count 506 H MPV 10.0 Neut % (Auto) 72.7 Lymph % (Auto) 14.6 [place] % (Auto) 10.0 Eos % (Auto) 0.1 Baso % (Auto) 0.1 Neut # (Auto) 7.57 Lymph # (Auto) 1.5 [place] # (Auto) 1.0 H Eos # (Auto) 0.0 Baso # (Auto) 0.0 Nucleated RBC % (a uto) 0 Nucleated RBCs # 0.0 Sodium 139 Potassium 4.9 Chloride 103 Carbon Dioxide 30 H Anion Gap 10.9 BUN 24 H Creatinine 0.7 GFR Calculation Not Reportable Glucose 107 Calculated Osmolal ity 293 Calcium 8.2 L Phosphorus 3.5 Magnesium 2.2 Total Bilirubin 0.4 AST 43 H ALT 146 H Alkaline Phosphata se 112 C-Reactive Protein 9.6 H NT-Pro-B Natriuret Pep 289 H Total Protein 6.3 L Albumin 2.9 L Globulin 3.4 Procalcitonin 0.05 Vitals: Last Vital Signs Temp 97.8 F 05/07/21 08:00 Pulse 64 05/07/21 08:25 Resp 16 05/07/21 08:25 BP 114/56 05/07/21 08:00 Pulse Ox 95 05/07/21 08:25 Discharge Plan Discharge Patient Disposition: Home Condition: Stable Prescriptions: New albuterol sulfate [Ventolin HFA] 90 mcg/actuation Hfa Aerosol Inhaler 2 puff inhalation Q4H.RESPIRATORY PRN (Reason: Shortness Of Breath) Qty: 8.5 RF: 0 aspirin 81 mg Tablet,Delayed Release (Dr/Ec) 81 mg PO DAILY 30 Days Qty: 30 RF: 0 fluticasone propion-salmeterol [Advair Diskus] 100-50 mcg/dose blister with device 1 inh inhalation BID Qty: 60 RF: 0 ascorbic acid (vitamin C) [Vitamin C] 500 mg Tablet 500 mg PO BID 30 Days Qty: 60 RF: 0 zinc gluconate 50 mg Tablet 50 mg PO DAILY 30 Days Qty: 30 RF: 0 atorvastatin 40 mg Tablet 40 mg PO BEDTIME 30 Days Qty: 30 RF: 0 Continued multivitamin Tablet 1 tab PO DAILY RF: 0 acetaminophen [Tylenol] 325 mg Tablet 650 mg PO Q4H PRN (Reason: Pain) RF: 0 magnesium 250 mg Tablet 250 mg PO DAILY RF: 0 cholecalciferol (vitamin D3) [Vitamin D3] 25 mcg (1,000 unit) Capsule 25 mcg PO DAILY RF: 0 Elderberry Gummies 1 tab PO DAILY RF: 0 Discontinued dexamethasone 6 mg tablet 6 mg PO DAILY RF: 0 Discharge Orders: Discharge Order (Routine); Ordered 05/07/21 Ordered By: Itz Campo Referrals: Valdemar Connors MD [Physician] - 1 month (covid 19, decreased ef, tricuspid regurgitaion) Elizabeth Bradley MD [Physician] - 05/13/21 1:40 pm (You have an appointment to establish primary care on May 13 at 1:40PM. Please bring your medications in their original bottles, insurance cards, and photo ID to your appointment. ) Discharge Diet: Cardiac Discharge Activity: Resume usual activity Patient Instructions: Viral Pneumonia (DC), Hypoxia (GEN), Opioid Safety Activity Restrictions/Additional Instructions: -Please continue to ambulate, as you are at a increased risk of blood clots -If you have calf pain or calf swelling or sudden onset shortness of breath or chest pain or bloody cough go to the emergency room -Please follow-up with primary care provider in 1 week -Please continue to self isolate, socially distance, facemask, hand wash -Please discuss with primary care provider about getting Covid vaccination within at least a month or sooner -Please follow-up with cardiology in 1 month -If you have chest pain, please go to the emergency room Discharge Attestations Time Spent in Discharge Care*: less than 30 min Quality Metrics Clinical Quality Measures During this hospital stay, did patient experience: None Coding Level of Care Code Acute Chg FW DC note Diagnoses Acute respiratory failure with hypoxia J96.01 Pneumonia due to COVID-19 virus U07.1; J12.82 Transaminitis R74.01 Myocarditis due to 2019 novel coronavirus U07.1; I40.0
== END 2021-05-07 13:47 | disposition home or self-care (01) | DRG 177 ==
LOC: ER 11:00 → MS 2A 13:44
PROVIDERS: Admitting Provider Family Medicine; Emergency Provider Emergency Medicine; Visit Provider Family Medicine
DX: U07.1 COVID-19 (principal); J12.82 Pneumonia due to coronavirus disease 2019; J96.01 Acute respiratory failure with hypoxia; I40.0 Infective myocarditis; Z96.661 Presence of right artificial ankle joint; I07.1 Rheumatic tricuspid insufficiency; B97.89 Other viral agents as the cause of diseases classified elsewhere
CPT/HCPCS: 36415; 36600; 71045; 71275; 76705; 80053; 82550; 82728; 82803; 83605; 83735; 83880; 84100; 84145; 84443; 84484; 85025; 85378; 85610; 86140; 86403; 87040; 87070; 87205; 87426; 87635; 87641; 93005; 93306; 94640; 96365; 96367; 96372; 97110; 97161; 97165; 99284; 99285; J0456; J0696; J1100; J1650; J1940; J3262; J3490; J7030; J7050; J7626; Q0144; Q9967

== ENCOUNTER → 2021-05-13 14:40 | Outpatient (BNVA) | payer MEDICARE, SELFPAY | PROVIDERS: Visit Provider Family Medicine | DX: U07.1 COVID-19 (principal) | CPT/HCPCS: 71046; 80053; 85025 ==

== ENCOUNTER 2021-07-17 09:21 | Outpatient (CLI) | payer MEDICARE, SELFPAY ==
--- NOTE | 2021-07-17 10:06 | ECG_ITS ---
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 Baseline heart rate was 81 beats per minute. Baseline blood pressure was 144/82 millimeters of mercury. Target heart rate was 146 beats per minute. Maximum heart rate achieved was 135, which was 92 % of the target heart rate. Maximum blood pressure was 199/82 millimeters of mercury. Total exercise time was 5 minutes 41 sec. Maximum METs achieved was 7.0, maximum VO2 was 24.5. The reason for ending the test was maximum effort. The patient complained of shortness of during the stress test, which then resolved at the end of the test. 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 RECOVERY: During the recovery period, heart rate dropped appropriately. No significant ST-T changes in the recovery suggestive of ischemia noted. CONCLUSION: 1. Exercise capacity fair. 2. Heart rate response was appropriate. 3. Blood pressure response was appropriate. 4. Symptoms not suggestive of ischemia. 5. Electrocardiogram portion of the stress test was not suggestive of ischemia. 6. Nuclear scan will be documented separately. Electronically Signed On 07-29-2021 20:01:28 [employer] by ELEAZAR CONNORS [id number]
[2021-07-17 10:08] VITALS: BMI 24.4
--- NOTE | 2021-07-17 10:08 | NMCV_ITS ---
NM sierra perf SPECT r/s* [id number] Sree Robertson Age: 76 Gender: M : 1945 Exam Date: 07/17/2021 10:08 Ordering Phys: Valdemar Connors MD ([email or web address]) Technologist: KEELY Gonsales Exam Location: [facility] Indications: CARDIOMYOPATHY STRESS TEST Please see separate stress test report in [facility] for full findings IMAGE PROTOCOL Rest/Stress 1 Exercise Day Radiopharmaceutical Dose (mCi) Administration Site Administered by Rest: Tc-99m 10.5 IV - right KEELY Pena [place] antecubital Stress:Tc-99m 32.5 IV KEELY Pena [place]ier[place] Rest: 17-Jul-2021 60 Discovery 630 Stress: 17-Jul-2021 15 Discovery 630 Radiopharmaceutical was injected at 91 % maximum heart rate. Images obtained in supine and prone position. SPECT RESULTS Technical Quality: Excellent Raw Data Analysis: Normal Image Corrections: No attenuation or motion correction applied Summed Stress Score: 1 Summed Rest Score: 3 Summed Difference Score: 0 PERFUSION FINDINGS SPECT images demonstrate homogeneous tracer distribution throughout the myocardium. FUNCTIONAL RESULTS (calculated via Gated SPECT) Stress Image LV EF (%): 73 Stress EDV (mL):92 TID: 0.97 Stress ESV (mL):25 Rest Image LV EF (%): 73 FUNCTIONAL FINDINGS: There is normal left ventricular systolic function. IMPRESSIONS Myocardial perfusion imaging is normal. EKG segment will be documented separately. Valdemar Connors MD (Electronically Signed) Final Date: 19 July 2021 16:02 S
[2021-07-17 11:45] VITALS: BP 133/64; PULSE 69
== END 2021-07-17 09:22 | disposition home or self-care (01) ==
LOC: CDL 09:24
PROVIDERS: PCP Family Medicine; Visit Provider Internal Medicine Cardiovascular Disease
DX: I42.9 Cardiomyopathy, unspecified (principal)
CPT/HCPCS: 78452; 93017; A9500